=== PATIENT | female | born 1930 | race African-American/Black ===

== ENCOUNTER 2017-05-15 14:39 | Emergency (ER) | payer MEDICARE ==
[2017-05-15] MEDS ORDERED: ASPIRIN 325 MG TABLET PO ONE (15:18)
--- NOTE | 2017-05-15 15:19 | ER Document Report ---
ED Medical Screen (RME) - General Chief Complaint: Chest Pain Stated Complaint: CHEST PAIN Time Seen by Provider: 05/15/17 15:15 Notes: The patient is a 87-year-old female, past medical history current smoker, hypertension, presents with a chest tightness that started after she was smoking cigarettes earlier today. She just moved from [facility] has not established a primary care physician yet in [place]. PE: NAD. Lungs CTAB. Non-tender chest wall. I have greeted and performed a rapid initial assessment of this patient. A comprehensive ED assessment and evaluation of the patient, analysis of test results and completion of the medical decision making process will be conducted by additional ED providers. - Related Data Allergies/Adverse Reactions: No Known Allergies Allergy (Unverified 05/15/17 14:42) Home Medications: Current Home Medications Albuterol Sulfate [Ventolin Hfa] 1 applic IH BID 05/15/17 [History] Aspirin 1 tab PO DAILY 05/15/17 [History] Atenolol/Chlorthalidone [Atenolol-Chlorthalidone 50-25mg Tablet] 1 tab PO DAILY 05/15/17 [History] Budesonide/Formoterol Fumarate [Symbicort HFA 160-4.5 mcg Inhaler 6 gm] 1 applic IH TID 05/15/17 [History] Bupropion HCl [Bupropion Xl] 1 tab PO DAILY 05/15/17 [History] Past Medical History - Social History Chew tobacco use (# tins/day): No Frequency of alcohol use: None Drug Abuse: None Renal/ Medical History: Denies: Hx Peritoneal Dialysis Physical Exam - Vital signs Vitals: Temp Pulse Resp BP Pulse Ox 97.9 F 73 18 128/57 H 97 05/15/17 14:56 05/15/17 14:56 05/15/17 14:56 05/15/17 14:56 05/15/17 14:56 Course - Vital Signs Vital signs: Temp Pulse Resp BP Pulse Ox 97.9 F 73 18 128/57 H 97 05/15/17 14:56 05/15/17 14:56 05/15/17 14:56 05/15/17 14:56 05/15/17 14:56
--- NOTE | 2017-05-15 16:10 | ER Document Report ---
ED General - General Chief Complaint: Chest Pain Stated Complaint: CHEST PAIN Time Seen by Provider: 05/15/17 15:15 Mode of Arrival: Ambulatory Information source: Patient Notes: This is an 87-year-old female with a history of hypertension and COPD who recently relocated from [place] who presents to the emergency room with some chest soreness which is is exacerbated by reaching. Patient states she felt the soreness while she was smoking a cigarette. She smokes 1 cigarette a day. She denies any chest pain at this time, shortness of breath, nausea or vomiting. Right now, she feels good - HPI Onset: Just prior to arrival Onset/Duration: Gradual Quality of pain: Dull Severity: Moderate Pain Level: 2 Associated symptoms: Other - Chest wall pain worse with movement of the arms. denies: Fever, Shortness of breath Exacerbated by: Movement Relieved by: Remaining still Similar symptoms previously: No Recently seen / treated by doctor: No - Related Data Allergies/Adverse Reactions: No Known Allergies Allergy (Unverified 05/15/17 14:42) Home Medications: Current Home Medications Albuterol Sulfate [Ventolin Hfa] 1 applic IH BID 05/15/17 [History] Aspirin 1 tab PO DAILY 05/15/17 [History] Atenolol/Chlorthalidone [Atenolol-Chlorthalidone 50-25mg Tablet] 1 tab PO DAILY 05/15/17 [History] Budesonide/Formoterol Fumarate [Symbicort HFA 160-4.5 mcg Inhaler 6 gm] 1 applic IH TID 05/15/17 [History] Bupropion HCl [Bupropion Xl] 1 tab PO DAILY 05/15/17 [History] Past Medical History - General Information source: Patient - Social History Smoking Status: Current Every Day Smoker Cigarette use (# per day): Yes - 1 cigarette a day Chew tobacco use (# tins/day): No Frequency of alcohol use: None Drug Abuse: None Lives with: Family Family History: None Patient has suicidal ideation: No Patient has homicidal ideation: No - Past Medical History Cardiac Medical History: Reports: Hx Hypertension Pulmonary Medical History: Reports: Hx COPD EENT Medical History: Reports: None Neurological Medical History: Reports: None Endocrine Medical History: Reports: None Renal/ Medical History: Reports: None. Denies: Hx Peritoneal Dialysis Malignancy Medical History: Reports: None GI Medical History: Reports: None Musculoskeltal Medical History: Reports None Skin Medical History: Reports None Psychiatric Medical History: Reports: None Traumatic Medical History: Reports: None Infectious Medical History: Reports: None Surgical Hx: Negative Review of Systems - Review of Systems Constitutional: denies: Chills, Fever EENT: No symptoms reported Cardiovascular: No symptoms reported Respiratory: No symptoms reported Gastrointestinal: No symptoms reported Genitourinary: No symptoms reported Female Genitourinary: No symptoms reported Musculoskeletal: See HPI Skin: No symptoms reported Hematologic/Lymphatic: No symptoms reported Neurological/Psychological: No symptoms reported Physical Exam - Vital signs Vitals: Temp Pulse Resp BP Pulse Ox 97.9 F 73 18 128/57 H 97 05/15/17 14:56 05/15/17 14:56 05/15/17 14:56 05/15/17 14:56 05/15/17 14:56 Notes: Physical exam: GENERAL: 87-year-old female, alert and oriented 3, no acute distress HEAD: Atraumatic, normocephalic. EYES: Pupils equal round and reactive to light, extraocular movements intact, sclera anicteric, conjunctiva are normal. ENT: Nares patent, oropharynx clear without exudates. Moist mucous membranes. NECK: Normal range of motion, supple without obvious mass or JVD. LUNGS: Breath sounds clear to auscultation bilaterally and equal. No wheezes rales or rhonchi. HEART: Regular rate and rhythm without murmurs, rubs or gallops. ABDOMEN: Soft, normoactive bowel sounds. No tenderness to palpation. No guarding, no rebound. No masses appreciated. EXTREMITIES: Normal range of motion, no pitting or edema. No clubbing or cyanosis. NEUROLOGICAL: Cranial nerves II through XII grossly intact. Normal speech, moving all extremities. PSYCH: Normal mood, normal affect. SKIN: Warm, Dry, normal turgor, no rashes or lesions noted. Course - Vital Signs Vital signs: Temp Pulse Resp BP Pulse Ox 97.9 F 73 20 132/58 H 97 05/15/17 14:56 05/15/17 14:56 05/15/17 20:52 05/15/17 20:52 05/15/17 20:52 - Laboratory Result Diagrams: 05/15/17 15:42 05/15/17 15:42 Laboratory results interpreted by me: 05/15/17 05/15/17 15:42 15:42 Hct 34.9 L RDW 14.2 H Monocytes % 13.4 H Potassium 3.4 L AST 40 H Creatine Kinase 572 H - Diagnostic Test Radiology reviewed: Image reviewed, Reports reviewed - CXR shows no acute infiltrates - EKG Interpretation by Me Rate: Normal Rhythm: NSR - EKG shows normal sinus rhythm with a ventricular rate of 77, right bundle branch block, left anterior hemiblock, nonspecific ST changes. There is no old EKG to compare. Discharge - Discharge Clinical Impression: Chest wall pain Condition: Stable Disposition: HOME, SELF-CARE Instructions: Chest Wall Pain ([facility]) Additional Instructions: Thank you for choosing [facility] for your care. The examination and treatment you have received in the Emergency Department today has been rendered on an emergency basis only and is not intended to be a substitute for complete medical care. You should contact your follow-up physician as it is important that he or she examine you for any new or remaining problems. If given a copy of any lab tests or radiology reports, please bring them with you when you see your physician. If your problem worsens or new symptoms appear and you are unable to arrange prompt follow-up care, return to the Emergency Department. Specific signs to look out for: Worsening pain, shortness of breath or any concerns or getting worse. Any other instructions: Continue current medicines. Primary Care Doctor's affiliated with [facility]: If you do not have a primary care doctor or you are unable to get an apointment during that time, you can try one of the doctor's below. These are internal medicine doctor's that have admitting priveledges to the hospital ( they will see you both in the office as well as in this hospital if you are ever hospitalized here). Dr. Jo Nowak [address], [place] [address] [phone] Dr Hernandez Address: [address] [place] [address] Dr Shepard Address: [address] [place] [address] [place] [address]
[2017-05-15 16:12] LABS: ABSOLUTE EOSINOPHILS # (AUTO) 0.1 10^3/uL (0.0-0.6); ABSOLUTE LYMPHOCYTES (AUTO) 1.5 10^3/uL (0.5-4.7); ABSOLUTE MONOCYTES (AUTO) 0.8 10^3/uL (0.1-1.4); ABSOLUTE NEUT (AUTO) 3.4 10^3/uL (1.7-8.2); BASOPHILS % (AUTO) 0.2 % (0-2); EOSINOPHILS % (AUTO) 1.8 % (0-6); HEMATOCRIT 34.9 % (36.0-47.0); HEMOGLOBIN 12.1 g/dL (12.0-15.5); HGB HCT DIFFERENCE 1.4; LYMPHOCYTES % (AUTO) 25.6 % (13-45); MEAN CORPUSCULAR HEMOGLOBIN 31.1 pg (27.0-33.4); MEAN CORPUSCULAR HGB CONC 34.7 g/dL (32.0-36.0); MEAN CORPUSCULAR VOLUME 90 fl (80-97); MONOCYTES % (AUTO) 13.4 % (3-13); RED CELL DISTRIBUTION WIDTH 14.2 % (11.5-14.0); WHITE BLOOD COUNT 5.7 10^3/uL (4.0-10.5)
[2017-05-15 16:14] LABS: ALANINE AMINOTRANSFERASE 30 U/L (9-52); ALBUMIN 3.8 g/dL (3.5-5.0); ALKALINE PHOSPHATASE 77 U/L (38-126); ANION GAP 13 (5-19); ASPARTATE AMINO TRANSFERASE 40 U/L (14-36); BILIRUBIN,DIRECT 0.3 mg/dL (0.0-0.4); BILIRUBIN,TOTAL 0.7 mg/dL (0.2-1.3); BLOOD UREA NITROGEN 15 mg/dL (7-20); CALCIUM 9.4 mg/dL (8.4-10.2); CARBON DIOXIDE 26 mmol/L (22-30); CHLORIDE 103 mmol/L (98-107); CREATINE KINASE 572 U/L (30-135); CREATININE RESULT 0.77 mg/dL (0.52-1.25); GLUCOSE 92 mg/dL (75-110); LIPASE 140.7 U/L (23-300); POTASSIUM 3.4 mmol/L (3.6-5.0); SODIUM 141.8 mmol/L (137-145); TOTAL PROTEIN 7.5 g/dL (6.3-8.2)
--- NOTE | 2017-05-15 16:15 | RADIOLOGY REPORT (SQ) ---
EXAM DESCRIPTION: CHEST SINGLE VIEW COMPLETED DATE/TIME: 05/15/2017 3:57 pm REASON FOR STUDY: chest pain COMPARISON: None. EXAM PARAMETERS: NUMBER OF VIEWS: One view. TECHNIQUE: Single frontal radiographic view of the chest acquired. RADIATION DOSE: NA LIMITATIONS: None. FINDINGS: LUNGS AND PLEURA: No opacities, masses or pneumothorax. No pleural effusion. MEDIASTINUM AND HILAR STRUCTURES: No masses. Contour normal. HEART AND VASCULAR STRUCTURES: Heart normal in size. Normal vasculature. BONES: No acute findings. HARDWARE: None in the chest. OTHER: No other significant finding. IMPRESSION: NO ACUTE RADIOGRAPHIC FINDING IN THE CHEST. TECHNICAL DOCUMENTATION: JOB ID: [id number] [employer]- All Rights Reserved
[2017-05-15 16:26] LABS: TROPONIN I 0.016 ng/mL
--- NOTE | 2017-05-15 20:50 | EKG REPORT ---
SEVERITY:- ABNORMAL ECG - SINUS RHYTHM RIGHT BUNDLE BRANCH BLOCK LVH WITH IVCD AND SECONDARY REPOL ABNRM : Confirmed by: Yulisa Lauren 15-May-2017 20:48:34
[2017-05-15 20:54] VITALS: BP 132/58
== END 2017-05-15 20:54 | disposition home or self-care (01) ==
LOC: ER 14:39
DX: R07.89 Other chest pain (principal); I10 Essential (primary) hypertension; J44.9 Chronic obstructive pulmonary disease, unspecified; F17.210 Nicotine dependence, cigarettes, uncomplicated; Z79.899 Other long term (current) drug therapy
CPT/HCPCS: 93005; 99285; 36415; 82550; 83690; 85025; 80053; 84484; 83880; 71010; 93010; A9270

== ENCOUNTER 2017-10-24 13:38 | Emergency (ER) | payer MEDICARE, MEDICAID ==
[2017-10-24] MEDS ORDERED: ACETAMINOPHEN 325 MG TABLET PO ONE (15:38)
[2017-10-24] MEDS ORDERED: TRAMADOL HCL 50 MG TABLET PO ONE (15:38)
[2017-10-24 16:21] LABS: ABSOLUTE BASOPHILS # (AUTO) 0.1 10^3/uL (0.0-0.2); ABSOLUTE LYMPHOCYTES (AUTO) 1.3 10^3/uL (0.5-4.7); ABSOLUTE MONOCYTES (AUTO) 0.8 10^3/uL (0.1-1.4); ABSOLUTE NEUT (AUTO) 4.8 10^3/uL (1.7-8.2); BASOPHILS % (AUTO) 1.9 % (0-2); EOSINOPHILS % (AUTO) 0.5 % (0-6); HEMATOCRIT 40.3 % (36.0-47.0); HEMOGLOBIN 13.6 g/dL (12.0-15.5); LYMPHOCYTES % (AUTO) 18.4 % (13-45); MEAN CORPUSCULAR HEMOGLOBIN 30.2 pg (27.0-33.4); MEAN CORPUSCULAR HGB CONC 33.9 g/dL (32.0-36.0); MEAN CORPUSCULAR VOLUME 89 fl (80-97); MONOCYTES % (AUTO) 10.8 % (3-13); PLATELET COUNT 265 10^3/uL (150-450); RED BLOOD COUNT 4.51 10^6/uL (3.72-5.28); RED CELL DISTRIBUTION WIDTH 13.8 % (11.5-14.0); SEGMENTED NEUTROPHILS % (AUTO) 68.4 % (42-78); TOTAL CELLS COUNTED % (AUTO) 100 %
[2017-10-24 16:40] LABS: ANION GAP 12 (5-19); BLOOD UREA NITROGEN 15 mg/dL (7-20); CALCIUM 9.8 mg/dL (8.4-10.2); CARBON DIOXIDE 30 mmol/L (22-30); CHLORIDE 103 mmol/L (98-107); GLUCOSE 100 mg/dL (75-110); POTASSIUM 4.1 mmol/L (3.6-5.0); SODIUM 145.2 mmol/L (137-145); URIC ACID 8.3 mg/dL (2.5-7.5)
--- NOTE | 2017-10-24 16:48 | RADIOLOGY REPORT (SQ) ---
EXAM DESCRIPTION: HAND LEFT 3 VIEWS COMPLETED DATE/TIME: 10/24/2017 4:38 pm REASON FOR STUDY: left hand pain, swelling, atraumatic COMPARISON: None. EXAM PARAMETERS: NUMBER OF VIEWS: Three views. TECHNIQUE: AP, lateral and oblique radiographic images acquired of the left hand. LIMITATIONS: None. FINDINGS: MINERALIZATION: Normal. BONES: No acute fracture or dislocation. No worrisome bone lesions. JOINTS: No effusions. 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 SOFT TISSUES: No soft tissue swelling. No foreign body. OTHER: No other significant finding. IMPRESSION: NEGATIVE STUDY OF THE LEFT HAND. NO RADIOGRAPHIC EVIDENCE OF ACUTE INJURY. TECHNICAL DOCUMENTATION: JOB ID: [id number] [employer]- All Rights Reserved Reading location - IP/workstation name: [email or web address]
--- NOTE | 2017-10-24 16:49 | RADIOLOGY REPORT (SQ) ---
EXAM DESCRIPTION: WRIST LEFT 3 VIEWS COMPLETED DATE/TIME: 10/24/2017 4:38 pm REASON FOR STUDY: left wrist pain, atraumatic COMPARISON: Left hand same date NUMBER OF VIEWS: Three views. TECHNIQUE: AP, lateral, and oblique radiographic images acquired of the left wrist. LIMITATIONS: None. FINDINGS: MINERALIZATION: Normal. BONES: No acute fracture or dislocation. No worrisome bone lesions. Normal alignment. SOFT TISSUES: No soft tissue swelling. No foreign body. OTHER: No other significant finding. IMPRESSION: NEGATIVE STUDY OF THE LEFT WRIST. NO RADIOGRAPHIC EVIDENCE OF ACUTE INJURY. TECHNICAL DOCUMENTATION: JOB ID: [id number] [employer]- All Rights Reserved Reading location - IP/workstation name: [email or web address]
--- NOTE | 2017-10-24 16:55 | ER Document Report ---
ED General - General Chief Complaint: Insect Bite Stated Complaint: LEFT HAND PAIN, SWELLING Time Seen by Provider: 10/24/17 15:27 Mode of Arrival: Ambulatory Information source: Patient, Relative - [facility] Notes: Patient is a pleasant 87-year-old black female presents to the emergency department with report of pain in the left wrist and hand that she has had for the last 4 days of unexplained etiology. The patient states pain is worse with any movement to the wrist or hand. She denies any obvious insect bites, but she is concerned that she may have been bitten. The patient denies any history of gout. She reports no chest pain or difficulty breathing or fever or chills. The patient reports no numbness or paresthesia. She denies any injury she is aware of. - Related Data Allergies/Adverse Reactions: No Known Allergies Allergy (Verified 10/24/17 13:50) Past Medical History - General Information source: Patient, Relative - Social History Smoking Status: Former Smoker Chew tobacco use (# tins/day): No Frequency of alcohol use: None Drug Abuse: None Lives with: Family Family History: None Patient has suicidal ideation: No Patient has homicidal ideation: No - Past Medical History Cardiac Medical History: Reports: Hx Hypertension Pulmonary Medical History: Reports: Hx COPD Renal/ Medical History: Denies: Hx Peritoneal Dialysis Past Surgical History: Reports: Hx Section - 5 Review of Systems - Review of Systems Notes: REVIEW OF SYSTEMS: CONSTITUTIONAL : Denies fever, chills, or sweats. Denies recent illness. EENT: Denies eye, ear, throat, or mouth pain or symptoms. Denies nasal or sinus congestion or discharge. Denies throat, tongue, or mouth swelling or difficulty swallowing. CARDIOVASCULAR: Denies chest pain. Denies palpitations or racing or irregular heart beat. Denies ankle edema. RESPIRATORY: Denies cough, cold, or chest congestion. Denies shortness of breath, difficulty breathing, or wheezing. GASTROINTESTINAL: Denies abdominal pain or distention. Denies nausea, vomiting , or diarrhea. Denies blood in vomitus, stools, or per rectum. Denies black, tarry stools. Denies constipation. GENITOURINARY: Denies difficulty urinating, painful urination, burning, frequency, blood in urine, or discharge. FEMALE GENITOURINARY: Denies vaginal bleeding, heavy or abnormal periods, irregular periods. Denies vaginal discharge or odor. MUSCULOSKELETAL: Denies back or neck pain or stiffness. SKIN: Denies rash, lesions or sores. HEMATOLOGIC : Denies easy bruising or bleeding. LYMPHATIC: Denies swollen, enlarged glands. NEUROLOGICAL: Denies confusion or altered mental status. Denies passing out or loss of consciousness. Denies dizziness or lightheadedness. Denies headache. Denies weakness or paralysis or loss of use of either side. Denies problems with gait or speech. Denies sensory loss, numbness, or tingling. Denies seizures. PSYCHIATRIC: Denies anxiety or stress. Denies depression, suicidal ideation, or homicidal ideation. ALL OTHER SYSTEMS REVIEWED AND NEGATIVE. Dictation was performed using [employer] voice recognition software Physical Exam - Vital signs Vitals: Temp Pulse Resp BP Pulse Ox 98.7 F 79 16 134/88 H 96 10/24/17 14:07 10/24/17 14:07 10/24/17 14:07 10/24/17 14:07 10/24/17 14:07 - Notes Notes: PHYSICAL EXAMINATION: GENERAL: Well-appearing, well-nourished and in no acute distress. HEAD: Atraumatic, normocephalic. EYES: Pupils equal round and reactive to light, extraocular movements intact, conjunctiva are normal. ENT: Nares patent, oropharynx clear without exudates. Moist mucous membranes. NECK: Normal range of motion, supple without lymphadenopathy LUNGS: Breath sounds clear to auscultation bilaterally and equal. No wheezes rales or rhonchi. HEART: Regular rate and rhythm without murmurs ABDOMEN: Soft, nontender, nondistended abdomen. No guarding, no rebound. No masses appreciated. Female : deferred Musculoskeletal: no pitting or edema. No cyanosis. Patient has pain on palpation to the left distal wrist and through the hand close to the first and second metacarpophalangeal joints. There is mild erythema noted to the region with warmth. No obvious evidence for abscess. No proximal erythema or adenopathy. Distally, the patient has good capillary refill and appropriate pulses. NEUROLOGICAL: Cranial nerves grossly intact. Normal speech, normal gait. Normal sensory, motor exams PSYCH: Normal mood, normal affect. SKIN: Warm, Dry, normal turgor, no rashes or lesions noted. Course - Re-evaluation Re-evalutation: 10/24/17 17:59 X-rays are negative and the patient had normal lab work with the exception of a slightly elevated uric acid level. The patient did have improvement after tramadol. Findings fit more so with gout, but I cannot exclude a very mild early cellulitis, so patient will be covered with medication for gout with colchicine and will be given 1 dose of prednisone now. The patient will also be placed upon Keflex in case her is a overlying cellulitis that she is concerned about. Will also write for Ultram which seemed to help the pain. No evidence for septic arthritis or electrolyte imbalance or neurovascular compromise. 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 You may take the colchicine up to twice per day as needed for significant gout pain. Colchicine can give you mild diarrhea and upset stomach as a side effect. You may take tylenol as needed for pain. Return to the emergency department in case of fever or severe swelling. Prescriptions: Tramadol HCl [Ultram 50 mg Tablet] 50 mg PO Q4HP PRN #20 tab PRN Reason: Colchicine [Colchicine 0.6 mg Tablet] 0.6 mg PO Q12HP PRN #14 tablet PRN Reason: Cephalexin Monohydrate [Keflex 500 mg Capsule] 500 mg PO TID 8 Days capsule
[2017-10-24] MEDS ORDERED: CEPHALEXIN 500 MG CAPSULE PO ONE (17:52)
[2017-10-24] MEDS ORDERED: COLCHICINE 0.6 MG TABLET PO ONE (17:52)
[2017-10-24] MEDS ORDERED: PREDNISONE 20 MG TABLET PO ONE (17:55)
[2017-10-24 18:21] VITALS: BP 136/68
== END 2017-10-24 18:21 | disposition home or self-care (01) ==
LOC: ER 13:38
DX: M10.032 Idiopathic gout, left wrist (principal); M25.532 Pain in left wrist; I10 Essential (primary) hypertension; J44.9 Chronic obstructive pulmonary disease, unspecified; Z87.891 Personal history of nicotine dependence
CPT/HCPCS: 99283; 36415; 84550; 85025; 80048; 73130; 73110; A9270 ×5; J7512

== ENCOUNTER 2017-12-21 14:22 | Emergency (ER) | payer MEDICARE, MEDICAID ==
[2017-12-21] MEDS ORDERED: ASPIRIN 81 MG TABLET, CHEWABLE PO ONE (15:10)
--- NOTE | 2017-12-21 15:12 | ER Document Report ---
ED Medical Screen (RME) - General Chief Complaint: Chest Pain Stated Complaint: CHEST DISCOMFORT Time Seen by Provider: 12/21/17 15:09 Mode of Arrival: Ambulatory Information source: Patient, Relative, [facility] Records Notes: 87-year-old female with hypertension, COPD presents with complaint of chest pain that started 3 days prior to arrival. Pain is located on the left side of her chest described as a pressure-like pain that is intermittent. Patient has not had any associated diaphoresis, nausea, lightheadedness. She denies any recent illnesses. She is a former smoker and quit 2 weeks ago. I have greeted and performed a rapid initial assessment of this patient. A comprehensive ED assessment and evaluation of the patient including analysis of labs and imaging ( if obtained) and completion of medical decision making will be conducted by an additional ED provider. PHYSICAL EXAMINATION: GENERAL: Well-appearing, well-nourished and in no acute distress. HEAD: Atraumatic, normocephalic. EYES: Pupils equal round extraocular movements intact, conjunctiva are normal. ENT: Nares patent NECK: Normal range of motion LUNGS: No respiratory distress Musculoskeletal: Normal range of motion NEUROLOGICAL: Normal speech, normal gait. PSYCH: Normal mood, normal affect. SKIN: Warm, Dry, normal turgor, no rashes or lesions noted. - Related Data Allergies/Adverse Reactions: No Known Allergies Allergy (Verified 12/21/17 15:06) Past Medical History - Social History Chew tobacco use (# tins/day): No Drug Abuse: None - Past Medical History Cardiac Medical History: Reports: Hx Hypertension Pulmonary Medical History: Reports: Hx COPD Renal/ Medical History: Denies: Hx Peritoneal Dialysis Past Surgical History: Reports: Hx Section - 5 Physical Exam - Vital signs Vitals: Temp Pulse Resp BP Pulse Ox 97.7 F 50 L 20 142/74 H 97 12/21/17 14:44 12/21/17 14:44 12/21/17 14:44 12/21/17 14:44 12/21/17 14:44 Course - Vital Signs Vital signs: Temp Pulse Resp BP Pulse Ox 97.7 F 50 L 20 142/74 H 97 12/21/17 14:44 12/21/17 14:44 12/21/17 14:44 12/21/17 14:44 12/21/17 14:44
--- NOTE | 2017-12-21 15:58 | RADIOLOGY REPORT (SQ) ---
EXAM DESCRIPTION: CHEST SINGLE VIEW COMPLETED DATE/TIME: 12/21/2017 3:50 pm REASON FOR STUDY: chest pain COMPARISON: 05/15/2017 EXAM PARAMETERS: NUMBER OF VIEWS: One view. TECHNIQUE: Single frontal radiographic view of the chest acquired. RADIATION DOSE: NA LIMITATIONS: None. FINDINGS: LUNGS AND PLEURA: No acute opacities, masses or pneumothorax. No pleural effusion. MEDIASTINUM AND HILAR STRUCTURES: Stable. HEART AND VASCULAR STRUCTURES: Heart normal in size. Normal vasculature. BONES: No acute findings. HARDWARE: None in the chest. OTHER: No other significant finding. IMPRESSION: NO ACUTE RADIOGRAPHIC FINDING IN THE CHEST. TECHNICAL DOCUMENTATION: JOB ID: [id number] [employer]- All Rights Reserved Reading location - IP/workstation name: [email or web address]
[2017-12-21 17:11] LABS: APPEARANCE,URINE CLEAR; BILIRUBIN,URINE NEGATIVE (NEGATIVE); COLOR,URINE YELLOW; GLUCOSE, URINE NEGATIVE (NEGATIVE); KETONES,URINE NEGATIVE (NEGATIVE); LEUKOCYTE ESTERASE,URINE NEGATIVE (NEGATIVE); NITRITE,URINE NEGATIVE (NEGATIVE); PROTEIN,URINE NEGATIVE (NEGATIVE); URINE SPECIFIC GRAVITY 1.013
--- NOTE | 2017-12-21 18:01 | ER Document Report ---
ED General - General Chief Complaint: Chest Pain Stated Complaint: CHEST DISCOMFORT Time Seen by Provider: 12/21/17 15:09 Mode of Arrival: Ambulatory Notes: 87-year-old female presents emergency department with complaints of chest pain she states that it started 3 days prior to arrival. Has been intermittent in nature. She is describes the pain as a pressure/aching sensation in the left chest. She denies any radiation of the pain. She denies any alleviating or exacerbating factors. Patient has not had any associated nausea, vomiting, diaphoresis. Patient states that she does have a history of hypertension and smoking. She denies a history of hyperlipidemia, diabetes, coronary artery disease, family history of coronary artery disease. - HPI Onset: Other - 3 day Onset/Duration: Gradual Quality of pain: Achy, Pressure Severity: Mild Associated symptoms: None Exacerbated by: Denies Relieved by: Denies Similar symptoms previously: Yes Recently seen / treated by doctor: No - Related Data Allergies/Adverse Reactions: No Known Allergies Allergy (Verified 12/21/17 15:06) Past Medical History - General Information source: Patient, Relative, [facility] Records - Social History Smoking Status: Current Every Day Smoker Chew tobacco use (# tins/day): No Drug Abuse: None Family History: None Patient has suicidal ideation: No Patient has homicidal ideation: No - Past Medical History Cardiac Medical History: Reports: Hx Hypertension Pulmonary Medical History: Reports: Hx COPD Renal/ Medical History: Denies: Hx Peritoneal Dialysis Past Surgical History: Reports: Hx Section - 5 Review of Systems - Review of Systems Constitutional: No symptoms reported EENT: No symptoms reported Cardiovascular: No symptoms reported Respiratory: No symptoms reported Gastrointestinal: No symptoms reported Genitourinary: No symptoms reported Female Genitourinary: No symptoms reported Musculoskeletal: No symptoms reported Skin: No symptoms reported Hematologic/Lymphatic: No symptoms reported Neurological/Psychological: No symptoms reported -: Yes All other systems reviewed and negative Physical Exam - Vital signs Vitals: Temp Pulse Resp BP Pulse Ox 97.7 F 50 L 20 142/74 H 97 12/21/17 14:44 12/21/17 14:44 12/21/17 14:44 12/21/17 14:44 12/21/17 14:44 Interpretation: Normal, Bradycardic - Notes Notes: PHYSICAL EXAMINATION: GENERAL: Well-appearing, well-nourished and in no acute distress. HEAD: Atraumatic, normocephalic. EYES: Pupils equal round and reactive to light, extraocular movements intact, conjunctiva are normal. ENT: Nares patent, oropharynx clear without exudates. Moist mucous membranes. NECK: Normal range of motion, supple without lymphadenopathy LUNGS: Breath sounds clear to auscultation bilaterally and equal. No wheezes rales or rhonchi. HEART: Regular rate and rhythm without murmurs ABDOMEN: Soft, nontender, nondistended abdomen. No guarding, no rebound. No masses appreciated. Female : deferred Musculoskeletal: Normal range of motion, no pitting or edema. No cyanosis. NEUROLOGICAL: Cranial nerves grossly intact. Normal speech, normal gait. Normal sensory, motor exams PSYCH: Normal mood, normal affect. SKIN: Warm, Dry, normal turgor, no rashes or lesions noted. Course - Re-evaluation Re-evalutation: 12/21/17 21:30 On re-evaluation, patient has no complaints. EKG is similar to previous EKG. 1st troponin is negative. Patient continues to deny chest pain. Family now at bedside. Say that they just traveled to this area from [place] 2 months ago. High suspicion for PE. CTA chest ordered. Discussed plan of care with family. They are agreeable for CT. 2nd troponin is WNL and trending down. 12/21/17 22:31 CTA does not show PE. There is a RML interstitial opacity appreciated. Patient has not had cough or fever. WBC is normal. I will start patient on antibiotics prophylactically. Patient instructed to follow up with PCP this week, to take medication as directed, and to return for worsening symptoms. - Vital Signs Vital signs: Temp Pulse Resp BP Pulse Ox 97.7 F 50 L 19 158/84 H 94 12/21/17 14:44 12/21/17 14:44 12/21/17 18:01 12/21/17 18:01 12/21/17 18:01 - Laboratory Result Diagrams: 12/21/17 18:15 12/21/17 18:15 Laboratory results interpreted by me: 12/21/17 12/21/17 12/21/17 16:10 18:15 18:15 RDW 14.3 H Seg Neuts % (Manual) 41 L Eosinophils % (Manual) 9 H Carbon Dioxide 31 H Urine Urobilinogen 4.0 H - EKG Interpretation by Me Additional EKG results interpreted by me: 12/21/17 18:00 EKG: Ventricular rate 52, NE interval 188, QRS duration 174, QTc 480, sinus rhythm, right bundle branch block. T-wave inversion in leads I, 2, 3, aVF, V2, V3, V4, V5, V6. EKG is similar to that done on 05/15/2017. Discharge - Discharge Clinical Impression: Interstitial pneumonia Chest pain Qualifiers: Chest pain type: unspecified Qualified Code(s): R07.9 - Chest pain, unspecified Condition: Stable Instructions: Chest Pain of Unclear Cause ([facility]), Pneumonia ([facility]) Prescriptions: Amox Tr/Potassium Clavulanate [Augmentin 875-125 Tablet] 1 tab PO BID 10 Days # 10 tablet Azithromycin 250 mg PO DAILY #6 tablet Referrals: JESSICA HARTMAN MD [ACTIVE STAFF] - Follow up as needed PATRICIA TOWNSEND DO [NO LOCAL MD] - Follow up as needed
[2017-12-21 18:35] LABS: HEMATOCRIT 36.9 % (36.0-47.0); HEMOGLOBIN 12.5 g/dL (12.0-15.5); MEAN CORPUSCULAR HEMOGLOBIN 30.7 pg (27.0-33.4); MEAN CORPUSCULAR VOLUME 90 fl (80-97); PLATELET COUNT 262 10^3/uL (150-450); RED BLOOD COUNT 4.08 10^6/uL (3.72-5.28); RED CELL DISTRIBUTION WIDTH 14.3 % (11.5-14.0); WHITE BLOOD COUNT 4.8 10^3/uL (4.0-10.5)
[2017-12-21 18:45] LABS: ALANINE AMINOTRANSFERASE 28 U/L (9-52); ALBUMIN 3.8 g/dL (3.5-5.0); ALKALINE PHOSPHATASE 72 U/L (38-126); ANION GAP 10 (5-19); ASPARTATE AMINO TRANSFERASE 32 U/L (14-36); BILIRUBIN,DIRECT 0.3 mg/dL (0.0-0.4); BILIRUBIN,TOTAL 0.5 mg/dL (0.2-1.3); BLOOD UREA NITROGEN 19 mg/dL (7-20); CALCIUM 9.7 mg/dL (8.4-10.2); CARBON DIOXIDE 31 mmol/L (22-30); CHLORIDE 104 mmol/L (98-107); CREATINE KINASE 71 U/L (30-135); GLUCOSE 84 mg/dL (75-110); POTASSIUM 3.8 mmol/L (3.6-5.0); TOTAL PROTEIN 7.9 g/dL (6.3-8.2)
[2017-12-21 18:54] LABS: ABSOLUTE LYMPHOCYTES# (MANUAL) 1.8 10^3/uL (0.5-4.7); ABSOLUTE MONOCYTES # (MANUAL) 0.6 10^3/uL (0.1-1.4); BASOPHILS % (MANUAL) 0 % (0-2); EOSINOPHILS % (MANUAL) 9 % (0-6); LYMPHOCYTES % (MANUAL) 37 % (13-45); MONOCYTES % (MANUAL) 13 % (3-13); SEGMENTED NEUTROPHILS % (MAN) 41 % (42-78); TOTAL CELLS COUNTED 100
[2017-12-21 18:55] LABS: ANISOCYTOSIS SLIGHT; OVALOCYTES SLIGHT; PLATELET COMMENT ADEQUATE; POIKILOCYTOSIS SLIGHT
[2017-12-21 18:57] LABS: CREATINE KINASE MB 1.31 ng/mL (<4.55); TROPONIN I 0.013 ng/mL
[2017-12-21] MEDS ORDERED: NORMAL SALINE 500 ML IV ONE (21:40)
--- NOTE | 2017-12-21 21:50 | RADIOLOGY REPORT (SQ) ---
EXAM DESCRIPTION: CTA CHEST COMPLETED DATE/TIME: 12/21/2017 9:35 pm REASON FOR STUDY: chest pain COMPARISON: None. TECHNIQUE: CT scan of the chest performed using helical scanning technique with dynamic intravenous contrast injection. Images reviewed with lung, soft tissue and bone windows. Reconstructed coronal and sagittal MPR images reviewed. Additional 3 dimensional post-processing performed to develop Maximal Intensity Projection images ([place] P). All images stored on PACS. All CT scanners at this facility use dose modulation, iterative reconstruction, and/or weight based d osing when appropriate to reduce radiation dose to as low as reasonably achievable (ALARA). [facility]: Dose Right [facility]: CareDose [facility]: Dose Right [facility]: Teradose 4D [facility]: [employer] CONTRAST TYPE AND DOSE: contrast/concentration: Isovue 370.00 mg/ml; Total Contrast Delivered: 100.0 ml; Total Saline Delivered: 55.0 ml Contrast bolus optimized for the pulmonary arteries. Not diagnostic for the aorta. RENAL FUNCTION: GFR > 60. RADIATION DOSE: CT Rad equipment meets quality standard of care and radiation dose reduction techniq ues were employed. CTDIvol: 37.0 mGy. DLP: 1157 mGy-cm. . LIMITATIONS: Mild breathing motion FINDINGS: LUNGS AND PLEURA: No consolidation. Scattered small nodular and interstitial opacities wi th subsegmental atelectasis in the lingula and right middle lobe. No pleural effusion. No pneumotho rax. AORTA AND GREAT VESSELS: No aneurysm. Contrast bolus not optimized for the aorta. HEART: No pericardial effusion. Moderate coronary artery calcifications. PULMONARY ARTERIES: No emboli visualized in the main pulmonary arteries or the segmental branches. HILAR AND MEDIASTINAL STRUCTURES: No identified masses or abnormal nodes. HARDWARE: None in the chest. UPPER ABDOMEN: No significant findings. Limited exam. THYROID AND OTHER SOFT TISSUES: No masses. No adenopathy. BONES: No acute finding. 3D MIPS: Confirm above findings. OTHER: No other significant finding. IMPRESSION: No emboli visualized in the main pulmonary arteries or the segmental branches.No consoli dation. Scattered small nodular and interstitial opacities with subsegmental atelectasis in the ling phani and right middle lobe. No pleural effusion. COMMENT: Quality ID # [id number]: Final reports with documentation of one or more dose reduction techniques (e.g., Automated exposure control, adjustment of the mA and/or kV according to patient size, use of iterative reconstruction technique) TECHNICAL DOCUMENTATION: JOB ID: [id number] [place]-72 2010 [employer]- All Rights Reserved Reading location - IP/workstation name: [email or web address]
[2017-12-21 23:45] VITALS: BP 130/63
--- NOTE | 2017-12-22 00:51 | EKG REPORT ---
SEVERITY:- ABNORMAL ECG - SINUS RHYTHM PROBABLE LEFT ATRIAL ABNORMALITY RIGHT BUNDLE BRANCH BLOCK LVH WITH IVCD AND SECONDARY REPOL ABNRM : Confirmed by: Hina Finn MD 22-Dec-2017 00:50:53
== END 2017-12-21 23:45 | disposition home or self-care (01) ==
LOC: ER 14:22
DX: R07.9 Chest pain, unspecified (principal); F17.200 Nicotine dependence, unspecified, uncomplicated; I10 Essential (primary) hypertension; J44.9 Chronic obstructive pulmonary disease, unspecified
CPT/HCPCS: 93005; 99285; 96360; 36415; 82553; 82550; 85025; 80053; 81001; 84484; 83880; 71045; 71275; 93010; A9270; J7040

== ENCOUNTER 2018-01-03 18:52 | Emergency (ER) | payer MEDICARE, MEDICAID ==
--- NOTE | 2018-01-03 20:07 | ER Document Report ---
ED Medical Screen (RME) - General Chief Complaint: Chest Congestion Stated Complaint: CONGESTION Time Seen by Provider: 01/03/18 20:06 Mode of Arrival: Wheelchair Information source: Patient Notes: This is an 87-year-old female with a history of COPD and treated for recent pneumonia who presents to the emergency room because she still feels congested. She denies any fever, chills, nausea vomiting. TRAVEL OUTSIDE OF THE [place] IN LAST 30 DAYS: No - Related Data Allergies/Adverse Reactions: No Known Allergies Allergy (Verified 01/03/18 18:53) Past Medical History - Social History Frequency of alcohol use: None - Past Medical History Cardiac Medical History: Reports: Hx Hypertension Pulmonary Medical History: Reports: Hx COPD Renal/ Medical History: Denies: Hx Peritoneal Dialysis Past Surgical History: Reports: Hx Section - 5 Physical Exam - Vital signs Vitals: Temp Pulse Resp BP Pulse Ox 97.5 F 60 16 187/63 H 96 01/03/18 19:04 01/03/18 19:04 01/03/18 19:04 01/03/18 19:04 01/03/18 19:04 Course - Vital Signs Vital signs: Temp Pulse Resp BP Pulse Ox 97.5 F 60 16 187/63 H 96 01/03/18 19:04 01/03/18 19:04 01/03/18 19:04 01/03/18 19:04 01/03/18 19:04
--- NOTE | 2018-01-03 21:11 | RADIOLOGY REPORT (SQ) ---
EXAM DESCRIPTION: CHEST 2 VIEWS COMPLETED DATE/TIME: 01/03/2018 8:55 pm REASON FOR STUDY: sob COMPARISON: 12/21/2017 and 05/15/2017 EXAM PARAMETERS: NUMBER OF VIEWS: two views TECHNIQUE: Digital Frontal and Lateral radiographic views of the chest acquired. RADIATION DOSE: NA LIMITATIONS: none FINDINGS: LUNGS AND PLEURA: No acute opacities, masses or pneumothorax. No pleural effusion. MEDIASTINUM AND HILAR STRUCTURES: Stable. HEART AND VASCULAR STRUCTURES: Stable. BONES: No acute findings. HARDWARE: None in the chest. OTHER: No other significant finding. IMPRESSION: NO ACUTE RADIOGRAPHIC FINDING IN THE CHEST. TECHNICAL DOCUMENTATION: JOB ID: [id number] [place]-72 2010 [employer]- All Rights Reserved Reading location - IP/workstation name: [employer]
[2018-01-03 22:42] LABS: ABSOLUTE BASOPHILS # (AUTO) 0.1 10^3/uL (0.0-0.2); ABSOLUTE EOSINOPHILS # (AUTO) 0.2 10^3/uL (0.0-0.6); ABSOLUTE LYMPHOCYTES (AUTO) 1.8 10^3/uL (0.5-4.7); ABSOLUTE MONOCYTES (AUTO) 0.7 10^3/uL (0.1-1.4); ABSOLUTE NEUT (AUTO) 2.2 10^3/uL (1.7-8.2); BASOPHILS % (AUTO) 1.2 % (0-2); EOSINOPHILS % (AUTO) 3.7 % (0-6); HEMATOCRIT 36.4 % (36.0-47.0); HEMOGLOBIN 12.6 g/dL (12.0-15.5); LYMPHOCYTES % (AUTO) 37.3 % (13-45); MEAN CORPUSCULAR HEMOGLOBIN 31.4 pg (27.0-33.4); MEAN CORPUSCULAR HGB CONC 34.6 g/dL (32.0-36.0); MEAN CORPUSCULAR VOLUME 91 fl (80-97); MONOCYTES % (AUTO) 13.8 % (3-13); PLATELET COUNT 270 10^3/uL (150-450); RED BLOOD COUNT 4.01 10^6/uL (3.72-5.28); RED CELL DISTRIBUTION WIDTH 14.4 % (11.5-14.0); TOTAL CELLS COUNTED % (AUTO) 100 %; WHITE BLOOD COUNT 4.9 10^3/uL (4.0-10.5)
--- NOTE | 2018-01-03 22:58 | ER Document Report ---
ED Respiratory Problem <TESHAANNA RogersCARLIN - Last Filed: 01/04/18 01:16> - General Mode of Arrival: Wheelchair TRAVEL OUTSIDE OF THE [place] IN LAST 30 DAYS: No <ANAHARIKAJUAREZ - Last Filed: 01/04/18 01:54> - General Chief Complaint: Chest Congestion Stated Complaint: CONGESTION Time Seen by Provider: 01/03/18 20:06 Notes: This 87-year-old female patient comes emerged from complaining of left-sided anterior chest pain. She says she has difficulty breathing and congestion. She was seen here on 12/21/2017 complaining of chest pain and diagnosed with right sided pneumonia. Chest x-ray was normal at that time, CT scan showed scattered small nodules and interstitial opacities with subsegmental atelectasis in the lingular and right middle lobes. Her CBC was normal with a 4000 white count without shift. She was treated with Augmentin and Zithromax. Family member reports the came here 6 months ago to visit with a relative in the and are not sure if they are going to stay here. Reviewing of the record shows they have actually been here at least 8 months so far based on an ER visit in early May 2017. I asked them about establishing with a local medical doctor if they are going to stay in this area, and they state that they were thinking about it. The patient did report that her blood pressure medication was running low. I again emphasized the need to establish with a local medical doctor to treat her medical problems, that we were not in urgent care facility or primary care provider. (TESHACARLIN) - Related Data Allergies/Adverse Reactions: No Known Allergies Allergy (Verified 01/03/18 18:53) Past Medical History - General Information source: Patient - Social History Smoking Status: Current Every Day Smoker Cigarette use (# per day): Yes Frequency of alcohol use: None Drug Abuse: None Lives with: Family Family History: None Patient has suicidal ideation: No Patient has homicidal ideation: No - Past Medical History Cardiac Medical History: Reports: Hx Hypertension Pulmonary Medical History: Reports: Hx COPD Past Surgical History: Reports: Hx Section - 5 <JUAREZ PEREZ - Last Filed: 01/04/18 01:54> Review of Systems - Review of Systems Constitutional: No symptoms reported EENT: No symptoms reported Cardiovascular: See HPI, Chest pain Respiratory: See HPI. denies: Hurts to breathe Gastrointestinal: No symptoms reported Genitourinary: No symptoms reported Female Genitourinary: No symptoms reported Musculoskeletal: No symptoms reported Skin: No symptoms reported Hematologic/Lymphatic: No symptoms reported Neurological/Psychological: No symptoms reported -: Yes All other systems reviewed and negative <JUAREZ PEREZ - Last Filed: 01/04/18 01:54> Physical Exam - Vital signs Interpretation: Hypertensive - General General appearance: Appears well, Alert In distress: None - HEENT Head: Normocephalic, Atraumatic Eyes: Normal Pupils: PERRL Neck: Normal - Respiratory Respiratory status: No respiratory distress Chest status: Tender Breath sounds: Normal. No: Rales, Rhonchi, Wheezing Chest palpation: Tender - There is tenderness to palpate the left parasternal region and the left anterior chest just below the breast. The breast itself is not tender. There is no tenderness to palpate similar areas on the right side of the chest. This is the same area the patient reports as painful when she takes a deep breath or coughs. - Cardiovascular Rhythm: Regular Heart sounds: Normal auscultation Murmur: No - Abdominal Inspection: Obese Bowel sounds: Normal Tenderness: Nontender - Back Back: Normal, Nontender - Extremities General upper extremity: Normal inspection General lower extremity: Edema - Both lower extremities have chronically thickened and lichenified skin, with chronic pitting edema. There are no breaks in the skin, ulcerations or weeping areas. - Neurological Neuro grossly intact: Yes - Psychological Associated symptoms: Normal affect, Normal mood - Skin Skin Temperature: Warm Skin Moisture: Dry Skin Color: Normal <CARLIN PARKINSON - Last Filed: 01/04/18 01:16> - Vital signs Vitals: Temp Pulse Resp BP Pulse Ox 97.5 F 60 16 187/63 H 96 01/03/18 19:04 01/03/18 19:04 01/03/18 19:04 01/03/18 19:04 01/03/18 19:04 Course - Laboratory Result Diagrams: 01/03/18 22:18 01/03/18 22:18 - Diagnostic Test Radiology reviewed: Image reviewed, Reports reviewed - Chest x-ray does not show any acute abnormalities. - EKG Interpretation by Tn EKG shows normal: Sinus rhythm, [place], Intervals. abnormal: QRS Complexes, ST-T Waves - LVH with secondary repolarization abnormalities Rate: Normal - 52 Rhythm: NSR [place]/QRS: RBBB Voltage: Consistant with LVH When compared to previous EKG there are: No significant change <CARLIN PARKINSON - Last Filed: 01/04/18 01:16> - Laboratory Result Diagrams: 01/03/18 22:18 01/03/18 22:18 <HARIKA PEREZON - Last Filed: 01/04/18 01:54> - Vital Signs Vital signs: Temp Pulse Resp BP Pulse Ox 98.0 F 60 19 177/65 H 100 01/04/18 00:39 01/03/18 19:04 01/04/18 00:39 01/04/18 00:39 01/04/18 00:39 - Laboratory Laboratory results interpreted by me: 01/03/18 22:18 RDW 14.4 H Monocytes % 13.8 H Discharge <CARLIN PARKINSON - Last Filed: 01/04/18 01:16> <JUAREZ PEREZ - Last Filed: 01/04/18 01:54> - Discharge Clinical Impression: Chest wall pain High blood pressure Qualifiers: Hypertension type: essential hypertension Qualified Code(s): I10 - Essential ( primary) hypertension Condition: Stable Disposition: HOME, SELF-CARE Additional Instructions: Chest Wall Pain: Your chest pain has been diagnosed as coming from the chest wall. This is often caused by straining the muscles or joints in the chest during physical activity, direct trauma, coughing, or vigorous vomiting. Persons with arthritis are especially prone to this type of pain, due to inflammation of the cartilage joints near the breast bone. Occasionally, no cause can be found. Rest from strenuous physical activity. This kind of chest pain is usually made worse by movement of the chest. Depending on the symptoms, we may prescribe medicine for pain, muscle relaxation, and antiinflammatory effects. If the pain is new, and seems to be due to muscle strain, cold packs can help. Otherwise, apply gentle warmth to the painful area for 15 minutes every hour or two. You should contact the doctor immediately if things change. Further evaluation is needed if you develop a fever or cough, if the nature of the pain changes, or if you become short of breath. Try taking Tylenol and ibuprofen or Aleve for your chest wall pain. Be sure to take your blood pressure medications and check your blood pressure at least twice daily. Follow-up with a local medical doctor to renew your blood pressure medications before you run out. Follow-up with a local medical doctor to manage your blood pressure and other health problems. RETURN TO THE EMERGENCY ROOM IF ANY NEW OR WORSENING SYMPTOMS. Marbellaibe Attestation: 01/03/18 23:08 I personally performed the services described in the documentation, reviewed and edited the documentation which was dictated to the scribe in my presence, and it accurately records my words and actions. (CARLIN PARKINSON) Scribe Documentation - Scribe Written by Scrmariela:: Nico Rodriguez, 01/04/2018 [id number] acting as scribe for :: Tesha <JUAREZ PEREZ - Last Filed: 01/04/18 01:54>
[2018-01-03] MEDS ORDERED: NAPROXEN 250 MG TABLET PO ONE (23:10)
[2018-01-03] MEDS ORDERED: ACETAMINOPHEN 325 MG TABLET PO ONE (23:10)
[2018-01-04 01:13] VITALS: BP 177/65
--- NOTE | 2018-01-04 03:06 | EKG REPORT ---
SEVERITY:- ABNORMAL ECG - SINUS RHYTHM RIGHT BUNDLE BRANCH BLOCK LVH WITH IVCD AND SECONDARY REPOL ABNRM : Confirmed by: Hina Finn MD 04-Jan-2018 03:05:07
== END 2018-01-04 01:00 | disposition home or self-care (01) ==
LOC: ER 18:52
DX: R07.89 Other chest pain (principal); I10 Essential (primary) hypertension; J44.9 Chronic obstructive pulmonary disease, unspecified; R60.0 Localized edema; I45.10 Unspecified right bundle-branch block; R09.89 Other specified symptoms and signs involving the circulatory and respiratory systems; Z87.01 Personal history of pneumonia (recurrent); Z79.899 Other long term (current) drug therapy; F17.210 Nicotine dependence, cigarettes, uncomplicated
CPT/HCPCS: 93005; 99284; 36415; 85025; 71046; 93010; A9270 ×2

== ENCOUNTER 2018-09-06 14:22 | Emergency (ER) | payer MEDICARE, MEDICAID ==
--- NOTE | 2018-09-06 14:41 | ER Document Report ---
ED Medical Screen (RME) - General Chief Complaint: Abdominal Pain Stated Complaint: ABDOMINAL PAIN Time Seen by Provider: 09/06/18 14:39 Mode of Arrival: Wheelchair Information source: Patient, Relative TRAVEL OUTSIDE OF THE [place] IN LAST 30 DAYS: No - HPI Patient complains to provider of: abd pain Onset: Other - pt with several day h/o abd pain. Worse today - Related Data Allergies/Adverse Reactions: No Known Allergies Allergy (Verified 09/06/18 14:29) Past Medical History - Past Medical History Cardiac Medical History: Reports: Hx Hypertension Pulmonary Medical History: Reports: Hx COPD Renal/ Medical History: Denies: Hx Peritoneal Dialysis Past Surgical History: Reports: Hx Section - 5 Physical Exam - Vital signs Vitals: Temp Pulse Resp BP Pulse Ox 97.9 F 51 L 18 124/86 H 96 09/06/18 14:33 09/06/18 14:33 09/06/18 14:33 09/06/18 14:33 09/06/18 14:33 Course - Vital Signs Vital signs: Temp Pulse Resp BP Pulse Ox 97.9 F 51 L 18 124/86 H 96 09/06/18 14:33 09/06/18 14:33 09/06/18 14:33 09/06/18 14:33 09/06/18 14:33
[2018-09-06 15:25] LABS: ABSOLUTE EOSINOPHILS # (AUTO) 0.2 10^3/uL (0.0-0.6); ABSOLUTE LYMPHOCYTES (AUTO) 1.9 10^3/uL (0.5-4.7); ABSOLUTE MONOCYTES (AUTO) 0.5 10^3/uL (0.1-1.4); ABSOLUTE NEUT (AUTO) 2.2 10^3/uL (1.7-8.2); BASOPHILS % (AUTO) 0.8 % (0-2); EOSINOPHILS % (AUTO) 3.4 % (0-6); HEMATOCRIT 39.7 % (36.0-47.0); HEMOGLOBIN 13.5 g/dL (12.0-15.5); LYMPHOCYTES % (AUTO) 38.6 % (13-45); MEAN CORPUSCULAR HEMOGLOBIN 30.7 pg (27.0-33.4); MEAN CORPUSCULAR HGB CONC 33.9 g/dL (32.0-36.0); MEAN CORPUSCULAR VOLUME 91 fl (80-97); MONOCYTES % (AUTO) 11.2 % (3-13); PLATELET COUNT 264 10^3/uL (150-450); RED BLOOD COUNT 4.39 10^6/uL (3.72-5.28); TOTAL CELLS COUNTED % (AUTO) 100 %; WHITE BLOOD COUNT 4.9 10^3/uL (4.0-10.5)
[2018-09-06 15:26] LABS: APPEARANCE,URINE CLEAR; BILIRUBIN,URINE NEGATIVE (NEGATIVE); COLOR,URINE YELLOW; GLUCOSE, URINE NEGATIVE (NEGATIVE); KETONES,URINE NEGATIVE (NEGATIVE); LEUKOCYTE ESTERASE,URINE NEGATIVE (NEGATIVE); NITRITE,URINE NEGATIVE (NEGATIVE); PROTEIN,URINE NEGATIVE (NEGATIVE); URINE SPECIFIC GRAVITY 1.009
[2018-09-06 15:40] LABS: ALANINE AMINOTRANSFERASE 22 U/L (9-52); ALBUMIN 3.9 g/dL (3.5-5.0); ALKALINE PHOSPHATASE 86 U/L (38-126); ANION GAP 7 (5-19); ASPARTATE AMINO TRANSFERASE 31 U/L (14-36); BILIRUBIN,DIRECT 0.2 mg/dL (0.0-0.4); BILIRUBIN,TOTAL 0.3 mg/dL (0.2-1.3); BLOOD UREA NITROGEN 18 mg/dL (7-20); CALCIUM 10.2 mg/dL (8.4-10.2); CARBON DIOXIDE 32 mmol/L (22-30); CHLORIDE 100 mmol/L (98-107); GLUCOSE 82 mg/dL (75-110); LIPASE 152.9 U/L (23-300); POTASSIUM 4.3 mmol/L (3.6-5.0); SODIUM 139.2 mmol/L (137-145); TOTAL PROTEIN 8.5 g/dL (6.3-8.2)
--- NOTE | 2018-09-06 16:19 | ER Document Report ---
ED General - General Chief Complaint: Abdominal Pain Stated Complaint: ABDOMINAL PAIN Time Seen by Provider: 09/06/18 14:39 Primary Care Provider: ADAM CONNORS MD [ACTIVE STAFF] - Follow up in 3-5 days SUHA HARRISON MD [ACTIVE STAFF] - Follow up in 3-5 days HERBERTH HO MD [ACTIVE STAFF] - Follow up in 3-5 days ANGELINA CASTRO MD [ACTIVE STAFF] - Follow up in 3-5 days Mode of Arrival: Wheelchair TRAVEL OUTSIDE OF THE U.S. IN LAST 30 DAYS: No - HPI Onset/Duration: Intermittent - For the last 5-6 months Quality of pain: Cramping, Dull Severity: Mild Associated symptoms: None Exacerbated by: Denies Relieved by: Denies Similar symptoms previously: Yes Recently seen / treated by doctor: Yes - Was seen in [place] for abdominal pain, told she had a B12 deficiency Notes: 8 - Related Data Allergies/Adverse Reactions: No Known Allergies Allergy (Verified 09/06/18 14:29) Past Medical History - General Information source: Patient, Relative - Social History Smoking Status: Current Every Day Smoker Family History: None Patient has suicidal ideation: No Patient has homicidal ideation: No - Past Medical History Cardiac Medical History: Reports: Hx Hypertension Pulmonary Medical History: Reports: Hx COPD Renal/ Medical History: Denies: Hx Peritoneal Dialysis Past Surgical History: Reports: Hx Section - 5 Review of Systems - Review of Systems Constitutional: No symptoms reported EENT: No symptoms reported Cardiovascular: No symptoms reported Respiratory: No symptoms reported Gastrointestinal: No symptoms reported Genitourinary: No symptoms reported Female Genitourinary: No symptoms reported Musculoskeletal: No symptoms reported Skin: No symptoms reported Hematologic/Lymphatic: No symptoms reported Neurological/Psychological: No symptoms reported Physical Exam - Vital signs Vitals: Temp Pulse Resp BP Pulse Ox 97.9 F 51 L 18 124/86 H 96 09/06/18 14:33 09/06/18 14:33 09/06/18 14:33 09/06/18 14:33 09/06/18 14:33 - Notes Notes: PHYSICAL EXAMINATION: GENERAL: Well-appearing, well-nourished and in no acute distress. HEAD: Atraumatic, normocephalic. EYES: Pupils equal round and reactive to light, extraocular movements intact, conjunctiva are normal. ENT: Nares patent, oropharynx clear without exudates. Moist mucous membranes. NECK: Normal range of motion, supple without lymphadenopathy LUNGS: Breath sounds clear to auscultation bilaterally and equal. No wheezes rales or rhonchi. HEART: Regular rate and rhythm without murmurs ABDOMEN: BS in all quads. Soft, nontender, nondistended abdomen. No guarding, no rebound. No masses appreciated. CVA tenderness bilaterally Female : deferred Musculoskeletal: Normal range of motion, no pitting or edema. No cyanosis. NEUROLOGICAL: Cranial nerves grossly intact. Normal speech, normal gait. Normal sensory, motor exams PSYCH: Normal mood, normal affect. SKIN: Warm, Dry, normal turgor, no rashes or lesions noted. 22-like and then on the other half of a flight Course - Re-evaluation Re-evalutation: 09/06/18 16:53 88-year-old female with a medical history of hypertension COPD who does smoke daily presents for complaints of "bubbling" in her stomach. Reports she has had this issue for the last 2 to 3 months. Has been seen by her primary care provider for this issue. Patient's last bowel movement was yesterday and has been drinking eating without any issues. Has been seen multiple times in [place] for GI issues with her primary care provider., States she was seen last month and told she had a B12 deficiency. Patient did not follow up with a GI doctor, patient was seen this past December in the emergency room for a cough, it was found out then that she had a lung nodule, patient not followed up with a assembler erector for this. Discussed with patient today that her CBC was negative for leukocytosis or anemia, CMP negative for hepatic or renal dysfunction, electrolytes without any disturbances, urinalysis negative for any hematuria. CT abdomen pelvis shows that patient has nodules on her bilateral kidneys as well as a a right middle lobe lung nodule that is presently 5 mm, this is unchanged from CT of the chest was done in December 2018. Discussed with patient that patient will require of her kidneys and bone for further evaluation of the patient, will refer patient to a assembler erector, zipper measurer, data processing systems project planner, as well as primary care provider. Diuretic therapy with [facility]. Has not had any fevers, has remained stable brought food with her and is eating when this provider came in. Patient is not in any distress. discussed case with Dr. Savage Eid, supervising physician, patient would be appropriate to have outpatient evaluation for bilateral kidney lesions and lung nodule with appropriate specialist. I have reevaluated this patient multiple times and no significant life threatening changes, no signs of toxicity, sepsis or peritonitis are noted. The patient and I have discussed the diagnosis and risks, and we agree with discharging home and close follow-up. We also discussed returning to the Emergency Department immediately if new or worsening symptoms occur with the understanding that symptoms and presentations can change. At this time will discharge with return precautions and follow-up recommendations. Verbal discharge instructions given a the bedside and opportunity for questions given. We have discussed the symptoms which are most concerning (e.g., saddle anesthesia ,vomiting, severe abd pain, fever, urinary or bowel incontinence or retention, changing or worsening pain) that necessitate immediate return. Medication warnings reviewed. All questions and concerns answered by this provider. Patient is in agreement with this plan and has verbalized understanding of return precautions and the need for primary care follow-up in the next 24-72 hours. Patient and daugher verbalized understanding of plan of care and agree with plan of care. - Vital Signs Vital signs: Temp Pulse Resp BP Pulse Ox 97.5 F 46 L 18 154/72 H 100 09/06/18 16:59 09/06/18 16:59 09/06/18 16:59 09/06/18 16:59 09/06/18 16:59 - Laboratory Result Diagrams: 09/06/18 15:10 09/06/18 15:10 Laboratory results interpreted by me: 09/06/18 09/06/18 15:10 15:10 Carbon Dioxide 32 H Total Protein 8.5 H Urine Urobilinogen 4.0 H Discharge - Discharge Clinical Impression: Lung nodule, Kidney lesion, Resolved abdominal pain Condition: Stable Disposition: HOME, SELF-CARE Instructions: Abdominal Pain ([facility]) Additional Instructions: Abdominal Pain There are many causes of abdominal pain. Pain can mean a serious problem requiring surgery (such as appendicitis). It can also be an innocent problem that goes away on its own (such as a viral infection). Often, time must pass to determine the cause of pain. The physician does not feel that hospitalization is necessary, at present. Things may change within the next 24 hours. Call the doctor or come back for re- examination if any problems occur, such as: (1) Pain that becomes more severe, steady, or becomes concentrated in one specific area. Also, pain that is more severe with movement or coughing. (2) Vomiting that persists or becomes more frequent. (3) Blood in the vomitus, urine, or bowel movements. Blood in the stool may have a tarry or black appearance. (4) Shaking chills or fever greater than 100 degrees F. (5) The abdomen becomes more distended or swollen. (6) Bowel movements cease. (7) Failure to improve as expected. Your blood work today was normal, you did not have an infection in your blood, your liver and kidney enzymes are normal urinalysis was normal. Your CT of your abdomen and pelvis showed that you have a nodule in your left lung which has been there since you were seen in December 2017 at [facility] [place] abdomen pelvis also show that you have nodules on both of your kidneys, you need to follow-up with an MRI. He been referred to a zipper measurer, data processing systems project planner, assembler erector and a primary care provider. You have established care in [place], it is advised that you establish care locally as you are in [place] for longer than your in [place]. Return immediately for any new or worsening symptoms. Follow up with primary care provider, call tomorrow to make followup a ppointment. Referrals: ADAM CONNORS MD [ACTIVE STAFF] - Follow up in 3-5 days SUHA HARRISON MD [ACTIVE STAFF] - Follow up in 3-5 days HERBERTH HO MD [ACTIVE STAFF] - Follow up in 3-5 days ANGELINA CASTRO MD [ACTIVE STAFF] - Follow up in 3-5 days
--- NOTE | 2018-09-06 16:25 | RADIOLOGY REPORT (SQ) ---
EXAM DESCRIPTION: CT ABD/PELVIS WITH IV ONLY COMPLETED DATE/TIME: 09/06/2018 4:10 pm REASON FOR STUDY: abd pain COMPARISON: None. TECHNIQUE: CT scan of the abdomen and pelvis performed using helical scanning technique with dynamic intravenous contrast injection. No oral contrast. Images reviewed with lung, soft tissue, and bone windows. Reconstructed coronal and sagittal MPR images reviewed. Delayed images for evaluation of the urinary system also acquired. All images stored on PACS. All CT scanners at this facility use dose modulation, iterative reconstruction, and/or weight based d osing when appropriate to reduce radiation dose to as low as reasonably achievable (ALARA). [facility]: Dose Right [facility]: CareDose [facility]: Dose Right [facility]: Teradose 4D [facility]: [employer] CONTRAST TYPE AND DOSE: contrast/concentration: Isovue 350.00 mg/ml; Total Contrast Delivered: 100.0 ml; Total Saline Delivered: 49.9 ml RENAL FUNCTION: BUN 18 creatinine 0.83. RADIATION DOSE: CT Rad equipment meets quality standard of care and radiation dose reduction techniq ues were employed. CTDIvol: 20.5 - 21.1 mGy. DLP: 2127 mGy-cm.. LIMITATIONS: None. FINDINGS: LOWER CHEST: Vague nodular lesion in the right middle lobe, incompletely imaged, measuring approximately 5 mm. LIVER: Normal size. No masses. No dilated ducts. SPLEEN: Normal size. No focal lesions. PANCREAS: No masses. No significant calcifications. No adjacent inflammation or peripancreatic fluid collections. Pancreatic duct not dilated. GALLBLADDER: No identified stones by CT criteria. No inflammatory changes to suggest cholecystitis. ADRENAL GLANDS: No significant masses or asymmetry. RIGHT KIDNEY AND URETER: 1.5 cm cortical lesion, not clearly cystic. Axial series 3 image 23. No s ignificant calcifications. No hydronephrosis or hydroureter. LEFT KIDNEY AND URETER: 1.8 cm cortical lesion, not clearly cystic. Axial series 5, image 33. No s ignificant calcifications. No hydronephrosis or hydroureter. AORTA AND VESSELS: No aneurysm. No dissection. Renal arteries, SMA, celiac without stenosis. RETROPERITONEUM: No retroperitoneal adenopathy, hemorrhage or masses. BOWEL AND PERITONEAL CAVITY: No masses or inflammatory changes. No free fluid or peritoneal masses. APPENDIX: Normal. PELVIS: No mass. No free fluid. Normal bladder. ABDOMINAL WALL: No masses. No hernias. BONES: No significant or acute findings. OTHER: No other significant finding. IMPRESSION: 1. SMALL CORTICAL LESIONS IN BOTH KIDNEYS WHICH ARE NOT CLEARLY CYSTIC. THESE COULD BE COMPLEX CYSTS CONTAINING HEMORRHAGIC MATERIAL OR DEBRIS. CANNOT EXCLUDE SOLID LESIONS. WOULD CONSIDER MRI OF THE KIDNEYS FOR MORE COMPLETE EVALUATION. 2. VAGUE NODULE IN THE RIGHT MIDDLE LOBE, MEASURING APPROXIMATELY 5 MM, INCOMPLETELY IMAGED. THIS WA S ALSO PRESENT ON A PRIOR CHEST CTA (12/21/2017). 3. NO OTHER SIGNIFICANT OR ACUTE FINDING IN THE ABDOMEN OR PELVIS ON CT SCAN WITH IV CONTRAST. TECHNICAL DOCUMENTATION: JOB ID: [id number] Quality ID # [id number]: Final reports with documentation of one or more dose reduction techniques (e.g., Au tomated exposure control, adjustment of the mA and/or kV according to patient size, use of iterative reconstruction technique) 2010 [employer]- All Rights Reserved Reading location - IP/workstation name: [email or web address]
[2018-09-06 17:33] VITALS: BP 154/72
== END 2018-09-06 17:36 | disposition home or self-care (01) ==
LOC: ER 14:22
DX: R10.9 Unspecified abdominal pain (principal); R91.1 Solitary pulmonary nodule; N28.9 Disorder of kidney and ureter, unspecified; F17.200 Nicotine dependence, unspecified, uncomplicated; I10 Essential (primary) hypertension; J44.9 Chronic obstructive pulmonary disease, unspecified
CPT/HCPCS: 36415; 74177; 80053; 81001; 83690; 85025; 99284

== ENCOUNTER 2018-12-17 10:45 | Emergency (ER) | payer MEDICARE, MEDICAID ==
--- NOTE | 2018-12-17 11:05 | ER Document Report ---
ED Medical Screen (RME) - General Chief Complaint: Sore Throat Stated Complaint: THROAT PAIN Time Seen by Provider: 12/17/18 10:55 Mode of Arrival: Wheelchair Information source: Patient, Relative Notes: 88-year-old female presented to ED for complaint of sore throat pain in her throat after she ate a piece out yesterday about 7 PM. She states she is got a very sore throat and then she is got a fishbone in the throat. She states she feels like something is moving in her throat. She is alert oriented respirations regular and unlabored she does have a history of heart murmur COPD high blood pressure 5 C-sections she lives with her family and she smokes a pack a day. Patient is able to speak full sentences. Patient is alert and oriented I have greeted and performed a rapid initial assessment of this patient. A comprehensive ED assessment and evaluation of the patient, analysis of test results and completion of medical decision making process will be conducted by an additional ED providers. Jasiel TRAVEL OUTSIDE OF THE [place].S. IN LAST 30 DAYS: No - Related Data Allergies/Adverse Reactions: No Known Allergies Allergy (Verified 12/17/18 10:47) Past Medical History - Social History Frequency of alcohol use: None Drug Abuse: None - Past Medical History Cardiac Medical History: Reports: Hx Hypertension Pulmonary Medical History: Reports: Hx COPD Renal/ Medical History: Denies: Hx Peritoneal Dialysis Past Surgical History: Reports: Hx Section - 5 Physical Exam - Vital signs Vitals: Temp Pulse Resp BP Pulse Ox 97.6 F 73 16 144/59 H 96 12/17/18 10:53 12/17/18 10:53 12/17/18 10:53 12/17/18 10:53 12/17/18 10:53 Course - Vital Signs Vital signs: Temp Pulse Resp BP Pulse Ox 97.6 F 73 16 144/59 H 96 12/17/18 10:53 12/17/18 10:53 12/17/18 10:53 12/17/18 10:53 12/17/18 10:53
--- NOTE | 2018-12-17 11:27 | RADIOLOGY REPORT (SQ) ---
EXAM DESCRIPTION: SOFT TISSUE NECK COMPLETED DATE/TIME: 12/17/2018 11:15 am REASON FOR STUDY: PA and lateral of neck swallowed fishbone COMPARISON: None. NUMBER OF VIEWS: Two views. TECHNIQUE: AP and lateral radiographic image of the soft tissues of the neck. LIMITATIONS: None. FINDINGS: EPIGLOTTIS: Normal. Contour normal. Aryepiglottic folds normal. PREVERTEBRAL SOFT TISSUES: Normal. No soft tissue swelling. SUBGLOTTIC AREA: Normal. No narrowing. RETROPHARYNGEAL SPACE: Normal. No soft tissue masses. BONES: No significant findings. LUNG APICES: Normal. OTHER: No radiopaque foreign bodies are identified on conventional radiograph. IMPRESSION: NEGATIVE STUDY OF THE SOFT TISSUES OF THE NECK. TECHNICAL DOCUMENTATION: JOB ID: [id number] [employer]- All Rights Reserved Reading location - IP/workstation name: [email or web address]
[2018-12-17] MEDS ORDERED: LIDOCAINE 2% VISCOUS SOLN 20 ML UDCUP PO ONE (11:45)
[2018-12-17] MEDS ORDERED: MAG HYDROX/AL HYDROX/SIMETH SUSP 30 ML UDCUP PO ONE (11:45)
[2018-12-17] MEDS ORDERED: METOCLOPRAMIDE HCL ORAL SOLN 10 MG/10 ML UDCUP PO ONE (11:45)
--- NOTE | 2018-12-17 12:04 | ER Document Report ---
ED ENT - General Chief Complaint: Sore Throat Stated Complaint: THROAT PAIN Time Seen by Provider: 12/17/18 10:55 Mode of Arrival: Wheelchair Notes: Patient is an 88-year-old female history of COPD, hypertension presents to the emergency department for a "fishbone that scratched my neck." Patient states yesterday evening around 1900 hrs. she was eating a [employer] fish fillet sandwich. States she felt immediately something scratch the inside of her throat. States she stopped eating the sandwich. Patient states she is got generalized pain only when she swallows. Patient's denying any respiratory distress or vomiting. Patient denies any fever, URI symptoms. Patient and family deny any history of esophageal strictures or trouble swallowing in the past. TRAVEL OUTSIDE OF THE [place] IN LAST 30 DAYS: No - Related Data Allergies/Adverse Reactions: No Known Allergies Allergy (Verified 12/17/18 10:47) Past Medical History - General Information source: Patient, Relative - Social History Smoking Status: Current Every Day Smoker Frequency of alcohol use: None Drug Abuse: None Family History: None Patient has suicidal ideation: No Patient has homicidal ideation: No - Past Medical History Cardiac Medical History: Reports: Hx Hypertension Pulmonary Medical History: Reports: Hx COPD Renal/ Medical History: Denies: Hx Peritoneal Dialysis Past Surgical History: Reports: Hx Section - 5 Review of Systems - Review of Systems Constitutional: denies: Fever EENT: See HPI Cardiovascular: No symptoms reported Respiratory: No symptoms reported Gastrointestinal: No symptoms reported Genitourinary: No symptoms reported Female Genitourinary: No symptoms reported Musculoskeletal: No symptoms reported Skin: No symptoms reported Hematologic/Lymphatic: No symptoms reported Neurological/Psychological: No symptoms reported Physical Exam - Vital signs Vitals: Temp Pulse Resp BP Pulse Ox 97.6 F 73 16 144/59 H 96 12/17/18 10:53 12/17/18 10:53 12/17/18 10:53 12/17/18 10:53 12/17/18 10:53 - Notes Notes: GENERAL: Alert, interacts well. No acute distress. HEAD: Normocephalic, atraumatic. EYES: Pupils equal, round, and reactive to light. Extraocular movements intact. ENT: Oral mucosa moist, tongue midline. Tonsils +1 bilaterally and symmetrical, pharynx within normal limits. Patient able to swallow with no difficulty. NECK: Full range of motion. Supple. Trachea midline. No lymphadenopathy appreciated LUNGS: Clear to auscultation bilaterally, no wheezes, rales, or rhonchi. No respiratory distress. HEART: Regular rate and rhythm. No murmur ABDOMEN: Soft, non-tender. Non-distended. Bowel sounds present in all 4 quadrants. EXTREMITIES: Moves all 4 extremities spontaneously. No edema, normal radial and dorsalis pedis pulses bilaterally. No cyanosis. BACK: no cervical, thoracic, lumbar midline tenderness. No saddle anesthesia, normal distal neurovascular exam. NEUROLOGICAL: Alert and oriented x3. Normal speech. cranial nerves II through XII grossly intact PSYCH: Normal affect, normal mood. SKIN: Warm, dry, normal turgor. No rashes or lesions noted. Course - Re-evaluation Re-evalutation: 12/17/18 12:01 Soft Tissue Neck X-Ray 12/17/18 11:03 IMPRESSION: NEGATIVE STUDY OF THE SOFT TISSUES OF THE NECK. Patient's x-ray reveals no obvious foreign bodies. Patient's in no respiratory distress, is able to swallow with no difficulty. Discussed use of Magic mouthwash for symptomatic relief. Discussed close follow-up with primary care provider and inevitable referral to gastroenterology for a scope as needed. Patient and family in room with patient voiced understanding. At this time will discharge with return precautions and follow-up recommendations. Verbal discharge instructions given a the bedside and opportunity for questions given. Medication warnings reviewed. Patient is in agreement with this plan and has verbalized understanding of return precautions and the need for primary care follow-up in the next 24-72 hours. This medical record was dictated with voice recognizing software. There may be grammatical, syntax errors that are unintended. - Vital Signs Vital signs: Temp Pulse Resp BP Pulse Ox 97.6 F 73 16 144/59 H 96 12/17/18 10:53 12/17/18 10:53 12/17/18 10:53 12/17/18 10:53 12/17/18 10:53 Discharge - Discharge Clinical Impression: Foreign body sensation in throat Condition: Stable Disposition: HOME, SELF-CARE Additional Instructions: As we discussed you have been seen and treated in the emergency department for a suspected fishbone in your throat. Your x-ray reveals no signs of abnormalities. Unfortunately some foreign bodies do not show up on x-ray. Should you continue with generalized discomfort in the next couple of days please follow-up with your primary care provider and inevitably gastroenterology. They would be able to put a camera down your throat to look i nto your esophagus. Please also make sure you return to the emergency room should he have any respiratory distress or further concerns.
[2018-12-17 12:14] VITALS: BP 123/59
== END 2018-12-17 12:15 | disposition home or self-care (01) ==
LOC: ER 10:45
DX: R09.89 Other specified symptoms and signs involving the circulatory and respiratory systems (principal); R07.0 Pain in throat; J44.9 Chronic obstructive pulmonary disease, unspecified; I10 Essential (primary) hypertension; F17.200 Nicotine dependence, unspecified, uncomplicated
CPT/HCPCS: 99283; 70360; J3490; A9270

== ENCOUNTER 2019-12-29 12:54 | Emergency (ER) | payer MEDICARE, MEDICAID ==
--- NOTE | 2019-12-29 13:31 | ER Document Report ---
ED Medical Screen (RME) - General Chief Complaint: Abdominal Pain Stated Complaint: ABDOMINAL PAIN Time Seen by Provider: 12/29/19 13:16 TRAVEL OUTSIDE OF THE U.S. IN LAST 30 DAYS: No - HPI Notes: 12/29/19 13:27 89-year-old female with a history of COPD and hypertension presents to the emergency room today for complaints of epigastric and left upper quadrant abdominal pain that is been on and off for the last 3 months. Patient was diagnosed with a UTI constipation by her primary care provider, was placed on erythromycin with a mild laxative. Patient states she still having abdominal pain. States her last bowel movement was yesterday. Denies any nausea vomiting diarrhea, denies any chest pain, shortness of breath, fevers or chills. Pain is not any worse with eating or drinking. Patient has not had any abdominal surgeries still has her gallbladder and her appendix. I have greeted and performed a rapid initial assessment of this patient. A comprehensive ED assessment and evaluation of the patient, analysis of test results and completion of the medical decision making process will be conducted by additional ED providers. PHYSICAL EXAMINATION: GENERAL: Chronically-ill well-nourished and in no acute distress. HEAD: Atraumatic, normocephalic. NECK: Normal range of motion CV: bradycardia LUNGS: No respiratory distress abd: LUQ, epigastric pain 12/29/19 13:30 - Related Data Allergies/Adverse Reactions: No Known Allergies Allergy (Verified 12/29/19 13:15) Past Medical History - Social History Chew tobacco use (# tins/day): No Frequency of alcohol use: None Drug Abuse: None - Past Medical History Cardiac Medical History: Reports: Hx Hypertension Pulmonary Medical History: Reports: Hx COPD Renal/ Medical History: Denies: Hx Peritoneal Dialysis Past Surgical History: Reports: Hx Section - 5 Physical Exam - Vital signs Vitals: Temp Pulse Resp BP Pulse Ox 98.7 F 45 L 20 152/52 H 100 12/29/19 13:07 12/29/19 13:07 12/29/19 13:07 12/29/19 13:07 12/29/19 13:07 Course - Vital Signs Vital signs: Temp Pulse Resp BP Pulse Ox 98.7 F 45 L 20 152/52 H 100 12/29/19 13:16 12/29/19 13:07 12/29/19 13:07 12/29/19 13:07 12/29/19 13:07
[2019-12-29 14:04] LABS: HEMATOCRIT 36.1 % (36.0-47.0); HEMOGLOBIN 12.2 g/dL (12.0-15.5); MEAN CORPUSCULAR HEMOGLOBIN 31.3 pg (27.0-33.4); MEAN CORPUSCULAR HGB CONC 33.8 g/dL (32.0-36.0); MEAN CORPUSCULAR VOLUME 93 fl (80-97); PLATELET COUNT 311 10^3/uL (150-450); RED CELL DISTRIBUTION WIDTH 14.6 % (11.5-14.0)
--- NOTE | 2019-12-29 14:13 | ER Document Report ---
ED GI/ - General Chief Complaint: Abdominal Pain Stated Complaint: ABDOMINAL PAIN Time Seen by Provider: 12/29/19 13:16 Mode of Arrival: Wheelchair Information source: Patient, Relative - Daughter Notes: 89-year-old female patient presenting to the emergency department concern for abdominal pain. Patient reports abdominal pain ongoing intermittently over the last year. She states that she sometimes has problems with constipation. She was diagnosed with UTI about 1 month ago, she took 5 days of erythromycin. She states her symptoms got better but now the abdominal pain has returned. She reports abdominal pain is typically in the left lower quadrant and comes and goes with no alleviating or exacerbating factors. She denies any recent fever, chills, dysuria, urinary frequency, nausea, vomiting or diarrhea. TRAVEL OUTSIDE OF THE [place] IN LAST 30 DAYS: No - HPI Patient complains to provider of: Abdominal pain Onset: Other - "months" Timing/Duration: Intermittent Quality of pain: Achy, Sharp Severity at maximum: Moderate Severity in ED: Mild - Related Data Allergies/Adverse Reactions: No Known Allergies Allergy (Verified 12/29/19 13:15) Past Medical History - General Information source: Patient - Social History Smoking Status: Former Smoker Chew tobacco use (# tins/day): No Frequency of alcohol use: None Drug Abuse: None Family History: None Patient has homicidal ideation: No - Past Medical History Cardiac Medical History: Reports: Hx Hypertension Pulmonary Medical History: Reports: Hx COPD Renal/ Medical History: Denies: Hx Peritoneal Dialysis Past Surgical History: Reports: Hx Section - 5 Review of Systems - Review of Systems Gastrointestinal: Abdominal pain -: Yes All other systems reviewed and negative Physical Exam - Vital signs Vitals: Temp Pulse Resp BP Pulse Ox 98.7 F 45 L 20 152/52 H 100 12/29/19 13:07 12/29/19 13:07 12/29/19 13:07 12/29/19 13:07 12/29/19 13:07 - Notes Notes: PHYSICAL EXAMINATION: GENERAL: Well-appearing, well-nourished and in no acute distress. HEAD: Atraumatic, normocephalic. EYES: Pupils equal round and reactive to light, extraocular movements intact, conjunctiva are normal. ENT: Nares patent, oropharynx clear without exudates. Moist mucous membranes. NECK: Normal range of motion, supple without lymphadenopathy LUNGS: Breath sounds clear to auscultation bilaterally and equal. No wheezes rales or rhonchi. HEART: Regular rate and rhythm without murmurs ABDOMEN: Soft, nontender, nondistended abdomen. No guarding, no rebound. No masses appreciated. Female : deferred Musculoskeletal: Normal range of motion, no pitting or edema. No cyanosis. NEUROLOGICAL: Cranial nerves grossly intact. Normal speech. Normal sensory, motor exams PSYCH: Normal mood, normal affect. SKIN: Warm, Dry, normal turgor, no rashes or lesions noted. Course - Re-evaluation Re-evalutation: 12/29/19 14:12 Patient appears well, nontoxic. Vital signs reviewed. Her heart rate is low however upon review of records she has been here multiple times with a heart rate in the high 40s to mid 50s. She reports intermittent left lower quadrant abdominal pain. She currently denies any pain. Labs are pending. Patient will be taken for CT with IV contrast as soon as her creatinine is back. Her daughter is at bedside. Patient's work-up today was benign. Her labs were unremarkable. CT abdomen pelvis with no acute pathology. This was discussed with the patient. Patient believes she may be having gas. There is a persistent pulmonary nodule noted on the CT. This has been there since at least 2018. The patient denies any knowledge of this. A copy of the CAT scan was given to the patient. She will follow-up with her primary care provider. She has not had any respiratory symptoms. Upon review of patient's records patient was made aware of the pulmonary nodule on her discharge instructions during the visit that it was found. This was also discussed with patient. Patient states she may have forgotten. Patient's daughter is bedside and states she will make sure this is followed up on. - Vital Signs Vital signs: Temp Pulse Resp BP Pulse Ox 98.7 F 45 L 20 152/52 H 100 12/29/19 13:16 12/29/19 13:07 12/29/19 13:07 12/29/19 13:07 12/29/19 13:07 - Laboratory Result Diagrams: 12/29/19 13:40 12/29/19 13:40 Laboratory results interpreted by me: 12/29/19 12/29/19 12/29/19 13:40 13:40 16:37 RDW 14.6 H Anion Gap 4 L Urine Ascorbic Acid 20 H - Diagnostic Test Radiology reviewed: Image reviewed, Reports reviewed - EKG Interpretation by Me EKG shows normal: Sinus rhythm Rate: Bradycardia Rhythm: NSR When compared to previous EKG there are: No significant change - LVH noted on EKG. Rate 46. This is unchanged from previous EKG. There is no concerning findings today. Discharge - Discharge Clinical Impression: Pulmonary nodule Abdominal pain Qualifiers: Abdominal location: left lower quadrant Qualified Code(s): R10.32 - Left lower quadrant pain Condition: Stable Disposition: HOME, SELF-CARE Additional Instructions: Your abdominal pain work-up today was reassuring. I did not find any life- threatening cause of your abdominal pain. You can try taking the medication that I have prescribed as this may help with your symptoms. You did have a pulmonary nodule noted on your CAT scan. This is something that you should bring to the attention of your primary care provider so that they can make a plan for follow-up and or monitoring. Please return to the emergency department for any new or worsening concerns. Prescriptions: Dicyclomine HCl [Bentyl 20 mg Tablet] 20 mg PO TID #30 tablet
[2019-12-29 14:18] LABS: ALBUMIN 3.5 g/dL (3.5-5.0); ALKALINE PHOSPHATASE 67 U/L (38-126); ASPARTATE AMINO TRANSFERASE 25 U/L (14-36); BILIRUBIN,TOTAL 0.3 mg/dL (0.2-1.3); BLOOD UREA NITROGEN 20 mg/dL (7-20); CALCIUM 9.2 mg/dL (8.4-10.2); CARBON DIOXIDE 30 mmol/L (22-30); CHLORIDE 105 mmol/L (98-107); GLUCOSE 92 mg/dL (75-110); TOTAL PROTEIN 7.3 g/dL (6.3-8.2)
--- NOTE | 2019-12-29 14:19 | RADIOLOGY REPORT (SQ) ---
EXAM DESCRIPTION: CHEST 2 VIEWS IMAGES COMPLETED DATE/TIME: 12/29/2019 2:06 pm REASON FOR STUDY: epigastric pain COMPARISON: 01/03/2018 EXAM PARAMETERS: NUMBER OF VIEWS: two views TECHNIQUE: Digital Frontal and Lateral radiographic views of the chest acquired. RADIATION DOSE: NA LIMITATIONS: none FINDINGS: LUNGS AND PLEURA: Linear atelectasis in the right lung base. No effusions. MEDIASTINUM AND HILAR STRUCTURES: No masses or contour abnormalities. HEART AND VASCULAR STRUCTURES: Heart normal size. No evidence for failure. BONES: Degenerative changes in the dorsal spine. HARDWARE: None in the chest. OTHER: No other significant finding. IMPRESSION: Linear atelectasis in the right lung base. No effusions. TECHNICAL DOCUMENTATION: JOB ID: [id number] 2010 [employer]- All Rights Reserved Reading location - IP/workstation name: [email or web address]
[2019-12-29 14:24] LABS: ANION GAP 4 (5-19)
[2019-12-29 14:26] LABS: ABSOLUTE MONOCYTES # (MANUAL) 0.3 10^3/uL (0.1-1.4); BASOPHILS % (MANUAL) 0 % (0-2); EOSINOPHILS % (MANUAL) 5 % (0-6); LYMPHOCYTES % (MANUAL) 25 % (13-45); MONOCYTES % (MANUAL) 7 % (3-13); SEGMENTED NEUTROPHILS % (MAN) 63 % (42-78); TOTAL CELLS COUNTED 100
[2019-12-29 14:27] LABS: ANISOCYTOSIS SLIGHT; PLATELET COMMENT ADEQUATE
--- NOTE | 2019-12-29 16:31 | RADIOLOGY REPORT (SQ) ---
EXAM DESCRIPTION: CT ABD/PELVIS WITH IV ONLY IMAGES COMPLETED DATE/TIME: 12/29/2019 4:07 pm REASON FOR STUDY: epigastric and LUQ abd pain x3m, worse today COMPARISON: 09/06/2018 TECHNIQUE: CT scan of the abdomen and pelvis performed using helical scanning technique with dynamic intravenous contrast injection. No oral contrast. Images reviewed with lung, soft tissue, and bone windows. Reconstructed coronal and sagittal MPR images reviewed. Delayed images for evaluation of the urinary system also acquired. All images stored on PACS. All CT scanners at this facility use dose modulation, iterative reconstruction, and/or weight based d osing when appropriate to reduce radiation dose to as low as reasonably achievable (ALARA). [facility]: Dose Right [facility]: CareDose [facility]: Dose Right [facility]: Teradose 4D [facility]: [employer] CONTRAST TYPE AND DOSE: contrast/concentration: Isovue 350.00 mmol/ml; Total Contrast Delivered: 100 .0 ml; Total Saline Delivered: 41.9 ml RENAL FUNCTION: BUN 20 creatinine 0.81 RADIATION DOSE: CT Rad equipment meets quality standard of care and radiation dose reduction techniq ues were employed. CTDIvol: 18.7 - 21.1 mGy. DLP: 1992 mGy-cm.. LIMITATIONS: None. FINDINGS: LOWER CHEST: There is a 7.6 mm nodule on the right on image 1 series 4. This is stable. LIVER: Normal size. No masses. No dilated ducts. SPLEEN: Normal size. No focal lesions. PANCREAS: No masses. No significant calcifications. No adjacent inflammation or peripancreatic fluid collections. Pancreatic duct not dilated. GALLBLADDER: No identified stones by CT criteria. No inflammatory changes to suggest cholecystitis. ADRENAL GLANDS: No significant masses or asymmetry. RIGHT KIDNEY AND URETER: No solid masses. No significant calcifications. No hydronephrosis or hyd roureter. LEFT KIDNEY AND URETER: No solid masses. No significant calcifications. No hydronephrosis or hydr oureter. AORTA AND VESSELS: No aneurysm. No dissection. Renal arteries, SMA, celiac without stenosis. RETROPERITONEUM: No retroperitoneal adenopathy, hemorrhage or masses. BOWEL AND PERITONEAL CAVITY: No masses or inflammatory changes. No free fluid or peritoneal masses. APPENDIX: Normal. PELVIS: No mass. No free fluid. Normal bladder. ABDOMINAL WALL: No masses. No hernias. BONES: No significant or acute findings. OTHER: No other significant finding. IMPRESSION: 1. Stable 7.6 mm right pulmonary nodule. 2. No acute findings in the abdomen or pelvis. TECHNICAL DOCUMENTATION: JOB ID: [id number] Quality ID # [id number]: Final reports with documentation of one or more dose reduction techniques (e.g., Au tomated exposure control, adjustment of the mA and/or kV according to patient size, use of iterative reconstruction technique) 2010 [employer]- All Rights Reserved Reading location - IP/workstation name: [email or web address]
[2019-12-29 17:37] LABS: APPEARANCE,URINE CLEAR; BILIRUBIN,URINE NEGATIVE (NEGATIVE); COLOR,URINE YELLOW; GLUCOSE, URINE NEGATIVE (NEGATIVE); KETONES,URINE NEGATIVE (NEGATIVE); LEUKOCYTE ESTERASE,URINE NEGATIVE (NEGATIVE); NITRITE,URINE NEGATIVE (NEGATIVE); PROTEIN,URINE NEGATIVE (NEGATIVE); URINE SPECIFIC GRAVITY 1.014; UROBILINOGEN,URINE NEGATIVE mg/dL (<2.0)
[2019-12-29 19:16] VITALS: BP 121/49
--- NOTE | 2019-12-30 09:25 | EKG REPORT ---
SEVERITY:- ABNORMAL ECG - SINUS BRADYCARDIA RIGHT BUNDLE BRANCH BLOCK LVH WITH IVCD AND SECONDARY REPOL ABNRM : Confirmed by: Yulisa Lauren 30-Dec-2019 09:24:21
== END 2019-12-29 18:45 | disposition home or self-care (01) ==
LOC: ER 12:54
DX: R91.1 Solitary pulmonary nodule (principal); R10.32 Left lower quadrant pain; K59.00 Constipation, unspecified
CPT/HCPCS: 36415; 71046; 74177; 80053; 81001; 83690; 85025; 87086; 93005; 93010; 99284

== ENCOUNTER 2020-01-12 19:54 | Emergency (ER) | payer MEDICARE, MEDICAID ==
--- NOTE | 2020-01-12 21:12 | ER Document Report ---
ED General - General Chief Complaint: Chest Tightness Stated Complaint: CHEST TIGHTNESS/SHORTNESS OF BREATH TRAVEL OUTSIDE OF THE [place] IN LAST 30 DAYS: No - HPI Notes: 89-year-old female history of hypertension and COPD presents with concern about a moment 2 days ago when patient had chest tightness and shortness of breath. Patient cannot recall what she was doing when symptoms occurred, describes having a momentary sensation like there was a lump in her throat and was short of breath for the past after few seconds. Patient presents to ED now to have that episode evaluated because of family. Patient has felt well since that moment of symptoms. Patient denies having chest pain when she exerts herself. Has not needed to use her albuterol rescue inhaler recently. Patient denies having any cough, fever, lower extremity edema, difficulty swallowing, change in weight, sore throat, sick contacts. Patient also inquires about her chronic intermittent constipation. This is been present for many years and she has seen her primary doctor about it and intermittently takes MiraLAX. She still having bowel movements and usually skips a day last bowel movement yesterday. She has had no straining with inability to pass stool, no abdominal pain, no vomiting, but wonders if there is anything else that she can take in general for her constipation. - Related Data Allergies/Adverse Reactions: No Known Allergies Allergy (Verified 01/12/20 21:07) Past Medical History - General Information source: Patient, [facility] Records - Social History Smoking Status: Unknown if Ever Smoked Family History: None - Past Medical History Cardiac Medical History: Reports: Hx Hypertension Pulmonary Medical History: Reports: Hx COPD Renal/ Medical History: Denies: Hx Peritoneal Dialysis Past Surgical History: Reports: Hx Section - 5 Review of Systems - Review of Systems Notes: REVIEW OF SYSTEMS: CONSTITUTIONAL : Denies fever, chills, or sweats. EENT: Denies recent cold/sinus symptoms, denies throat pain CARDIOVASCULAR: Denies chest pain, DEYSI RESPIRATORY: Denies cough, denies shortness of breath. GASTROINTESTINAL: Denies abdominal pain, nausea/vomiting. GENITOURINARY: Denies difficulty urinating, painful urination. FEMALE GENITOURINARY: Denies abnormal vaginal bleeding, vaginal discharge. MUSCULOSKELETAL: Denies neck pain, back pain. SKIN: Denies rash or skin lesions. HEMATOLOGIC : Denies easy bruising or bleeding. LYMPHATIC: Denies swollen, enlarged glands. NEUROLOGICAL: Denies headache, denies change in gait. PSYCHIATRIC: Denies anxiety or stress or depression. Physical Exam - Vital signs Vitals: Temp Pulse Resp BP Pulse Ox 98.3 F 62 13 178/59 H 100 01/12/20 20:02 01/12/20 20:02 01/12/20 20:02 01/12/20 20:02 01/12/20 20:02 - Notes Notes: PHYSICAL EXAMINATION: GENERAL: Very well-appearing, well-nourished, talkative pleasant smiling elderly woman sitting at edge of exam stretcher in no acute distress. HEAD: Atraumatic, normocephalic. EYES: Pupils equal round and appropriate constriction, sclera anicteric, conjunctiva are normal. ENT: nares patent, moist mucous membranes. NECK: Normal range of motion, supple without lymphadenopathy LUNGS: Breath sounds clear to auscultation bilaterally and equal. No wheezes rales or rhonchi. HEART: Regular rate and rhythm without murmurs ABDOMEN: Soft, nontender, no guarding, no masses, no CVAT EXTREMITIES: Normal range of motion, no pitting or edema. No cyanosis. NEUROLOGICAL: Awake, alert, conversing appropriately, moves all extremities spontaneously. PSYCH: Normal mood, normal affect. SKIN: Warm, Dry, normal turgor, no rashes or lesions noted. Course - Re-evaluation Re-evalutation: 01/13/20 01:57 Patient with transient chest pain and shortness of breath 2 days ago, currently asymptomatic, very well-appearing and normal physical exam, hypertensive but otherwise normal vitals. Given patient's age and risk factors I obtained EKG troponin BNP chest x-ray. Chest x-ray improved from prior with very slight pulmonary edema, BNP however insufficient elevation to diagnose CHF exacerbation and clinically patient is not overloaded. Obtain VBG which showed fully compensated chronic respiratory acidosis consistent with COPD, but no current COPD exacerbation present. No signs of acute ischemia on EKG, patient's EKG as diffuse T wave inversions and ST elevation in aVR but this has been patient's EKG on multiple prior presentations and is not significantly changed from prior. Patient has mild chronic constipation but no signs of obstruction, patient still passing stool and gas, no abdominal pain, no vomiting. Gave patient education on using a spacer if she does need to use her albuterol rescue inhaler and will send to pharmacy. Gave education constipation which patient demonstrated understanding of. Patient has PCP and health program director who she will follow-up with. Gave patient extensive return to ED precautions which she also showed understanding of. Patient demonstrated agreement with the treatment plan and patient and family denied having any other questions or concerns at time of discharge. Patient's grandson is campus security director at [employer]. - Vital Signs Vital signs: Temp Pulse Resp BP Pulse Ox 98.3 F 62 19 133/62 H 99 01/12/20 21:07 01/12/20 20:02 01/13/20 02:31 01/13/20 02:31 01/13/20 02:31 - Laboratory Result Diagrams: 01/12/20 20:30 01/13/20 00:09 Laboratory results interpreted by me: 01/12/20 01/13/20 01/13/20 20:30 00:09 00:09 RDW 14.5 H AST 39 H NT-Pro-B Natriuret Pep 551 H - EKG Interpretation by Me Additional EKG results interpreted by me: 01/12/20 21:11 Heart rate 55, sinus rhythm, right bundle branch block, no significant ST elevations, no significant ST depressions, diffuse T wave inversions most prominent in precordial leads not significantly changed from multiple prior EKGs Discharge - Discharge Clinical Impression: Chest pain Qualifiers: Chest pain type: unspecified Qualified Code(s): R07.9 - Chest pain, unspecified Disposition: HOME, SELF-CARE Additional Instructions: Constipation Constipation is a common problem. It is especially likely as you get older. Constipation is a common cause of abdominal pain, but sometimes causes no symptoms at all. Causes of constipation include certain medications, dehydration, diets, inactivity, and low-fiber intake. Rarely, it can be a symptom of underlying disease. The physician has evaluated you for this. Avoid constipation by eating a diet high in fiber, fruits, and vegetables. Get regular exercise. If possible, avoid constipating medicines like narcotic pain medication. Some vitamin tablets can cause constipation. Stool softeners may be needed for difficult cases. Laxatives are useful for occasional constipation. You should use them only when necessary. Too-frequent use can make your bowels dependent on them. Some over the counter laxatives available without prescription are: Milk of Magnesia, 1-2 tablespoons twice a day Dulcolax, 5 mg pill or 10 mg suppository. Citrate of Magnesia, 4-5 ounces a day for a day or two For acute constipation, Fleet's Enemas and Dulcolax suppositories are helpful. Chronic, [facility] use of laxatives or enemas is not a good idea. Your bowel may become dependant on them. You do not need to have a bowel movement every day. Many people do fine with a bowel movement every three or four days. You should call your doctor or return for re-evaluation if you pass blood in the stool, or if you develop fever or increasing abdominal pain. Drink one additional cup of water each day over the next few days with a half dose of fiber supplementation. You can use Metamucil powder, Metamucil tablets, or fiber Gummies which can be found at any drugstore. Take the half dose of whichever fiber supplement you choose for the first week and then take the regular dose after that. I have sent a spacer to your pharmacy which you should use whenever you need to use your albuterol inhaler. Attached the albuterol inhaler to 1 end of the spacer and put the other end of the spacer in your mouth. Pump albuterol once and take 3 deep breaths in and out through the spacer and then repeat for a second puff of albuterol. Return to the emergency department immediately if you have any return of chest pain, dizziness, fainting, difficulty breathing, inability to pass gas, vomiting, belly pain, fever, or any other worsening or alarming symptoms. Follow-up with your primary doctor and health program director within 1 week. Prescriptions: Inhaler, Assist Devices [Space Chamber Plus] 1 each MC Q4HP PRN #1 spacer PRN Reason:
--- NOTE | 2020-01-12 21:57 | RADIOLOGY REPORT (SQ) ---
EXAM DESCRIPTION: XR CHEST 1 VIEW COMPLETED DATE/TME: 01/12/2020 21:14 CLINICAL HISTORY: 89 years, Female, SOB CP h/o htn copd EXAM DESCRIPTION: CLINICAL HISTORY: SOB CP h/o htn copd COMPARISON: 12/29/2019 FINDINGS: Single view of the chest is submitted. Mild pulmonary edema is slightly improved. Cardiac silhouette is mildly enlarged but improved. No focal parenchymal or pleural disease. No acute bony abnormality. There is pulmonary vascular engorgement. IMPRESSION: Mildly improved pulmonary edema.
[2020-01-12 22:46] LABS: INTERNATIONAL RATION (INR) 0.99; PROTHROMBIN TIME 13.3 SEC (11.4-15.4)
[2020-01-12 22:47] LABS: PARTIAL THROMBOPLASTIN TIME 31.2 SEC (23.5-35.8)
[2020-01-12 22:54] LABS: HEMATOCRIT 39.7 % (36.0-47.0); HEMOGLOBIN 13.2 g/dL (12.0-15.5); MEAN CORPUSCULAR HEMOGLOBIN 30.9 pg (27.0-33.4); MEAN CORPUSCULAR HGB CONC 33.2 g/dL (32.0-36.0); MEAN CORPUSCULAR VOLUME 93 fl (80-97); PLATELET COUNT 257 10^3/uL (150-450); RED BLOOD COUNT 4.27 10^6/uL (3.72-5.28); RED CELL DISTRIBUTION WIDTH 14.5 % (11.5-14.0); WHITE BLOOD COUNT 5.9 10^3/uL (4.0-10.5)
[2020-01-12 23:28] LABS: ABSOLUTE MONOCYTES # (MANUAL) 0.8 10^3/uL (0.1-1.4); ANISOCYTOSIS SLIGHT; BASOPHILS % (MANUAL) 0 % (0-2); EOSINOPHILS % (MANUAL) 2 % (0-6); LYMPHOCYTES % (MANUAL) 32 % (13-45); METAMYELOCYTES % (MANUAL) 1 % (0-1); MONOCYTES % (MANUAL) 13 % (3-13); PLATELET COMMENT ADEQUATE; SEGMENTED NEUTROPHILS % (MAN) 50 % (42-78); TOTAL CELLS COUNTED 100
[2020-01-13 00:22] LABS: VENOUS BLOOD BASE EXCESS 2.5 mmol/L; VENOUS BLOOD PCO2 52.2 mmHg (35-63); VENOUS BLOOD PH 7.36 (7.30-7.42)
[2020-01-13 01:09] LABS: ALBUMIN 3.8 g/dL (3.5-5.0); ALKALINE PHOSPHATASE 82 U/L (38-126); ANION GAP 8 (5-19); ASPARTATE AMINO TRANSFERASE 39 U/L (14-36); BILIRUBIN,DIRECT 0.1 mg/dL (0.0-0.4); BILIRUBIN,TOTAL 0.5 mg/dL (0.2-1.3); BLOOD UREA NITROGEN 17 mg/dL (7-20); CALCIUM 9.5 mg/dL (8.4-10.2); CARBON DIOXIDE 26 mmol/L (22-30); CHLORIDE 105 mmol/L (98-107); GLUCOSE 92 mg/dL (75-110); POTASSIUM 3.9 mmol/L (3.6-5.0); TOTAL PROTEIN 8.2 g/dL (6.3-8.2)
[2020-01-13 01:23] LABS: TROPONIN I 0.014 ng/mL
[2020-01-13 02:51] VITALS: BP 133/62
--- NOTE | 2020-01-13 07:25 | EKG REPORT ---
SEVERITY:- ABNORMAL ECG - SINUS RHYTHM RIGHT BUNDLE BRANCH BLOCK , LAFB. LVH WITH IVCD AND SECONDARY REPOL ABNRM : Confirmed by: Neymar Garcia MD 13-Jan-2020 07:24:26
== END 2020-01-13 02:54 | disposition home or self-care (01) ==
LOC: ER 19:54
DX: R07.89 Other chest pain (principal); J81.1 Chronic pulmonary edema; I10 Essential (primary) hypertension; J44.9 Chronic obstructive pulmonary disease, unspecified; R06.02 Shortness of breath; K59.09 Other constipation; I45.10 Unspecified right bundle-branch block
CPT/HCPCS: 36415; 71045; 80053; 82803; 83880; 84484; 85025; 85610; 85730; 93005; 93010; 99285

== ENCOUNTER 2020-02-24 13:13 | Emergency (ER) | payer MEDICARE, MEDICAID ==
[2020-02-24] MEDS ORDERED: TIZANIDINE HCL 4 MG TABLET PO ONE (14:14)
--- NOTE | 2020-02-24 14:15 | ER Document Report ---
ED Medical Screen (RME) - General Chief Complaint: Shoulder Pain Stated Complaint: ARM PAIN Time Seen by Provider: 02/24/20 14:03 Mode of Arrival: Wheelchair Information source: Patient, Relative Notes: HPI; 89-year-old female presents emergency room with her daughter complaining of a sudden onset of right shoulder pain for the past 3 days. History of arthritis. States she is been taking Tylenol without relief. Per daughter patient has also not been eating for the past 3 days. States that patient has been refusing to eat. Patient denies any chest pain, shortness of breath, no difficulty breathing. No explanation to why she is refusing to eat. Daughter states she is taking muscle relaxers in the past with relief of her arthritic pain. There is been no trauma or injury. Patient is right-handed. PE: Alert and oriented x3. Mild distress noted. Lungs: Clear to auscultation without rales, rhonchi, wheezes. Heart: Regular rate rhythm without murmurs, rubs, gallops. Decreased range of motion to right shoulder secondary to pain. There is tenderness on palpation to the right humerus no deformity is noted. I have greeted and performed a rapid initial assessment of this patient. A comprehensive ED assessment and evaluation of the patient, analysis of test results and completion of the medical decision making process will be conducted by additional ED providers. I have specifically instructed the patient or family members with the patient to immediately return to any nursing staff should anything change in the patient's condition or with their chief complaint. TRAVEL OUTSIDE OF THE [place] IN LAST 30 DAYS: No - Related Data Allergies/Adverse Reactions: No Known Allergies Allergy (Verified 01/12/20 21:07) Past Medical History - Social History Frequency of alcohol use: None Drug Abuse: None - Past Medical History Cardiac Medical History: Reports: Hx Hypertension Pulmonary Medical History: Reports: Hx COPD Renal/ Medical History: Denies: Hx Peritoneal Dialysis Past Surgical History: Reports: Hx Section - 5 Physical Exam - Vital signs Vitals: Temp Pulse Resp BP Pulse Ox 98.2 F 62 20 142/55 H 97 02/24/20 13:27 02/24/20 13:27 02/24/20 13:27 02/24/20 13:27 02/24/20 13:27 Course - Vital Signs Vital signs: Temp Pulse Resp BP Pulse Ox 98.2 F 62 20 142/55 H 97 02/24/20 13:27 02/24/20 13:27 02/24/20 13:27 02/24/20 13:27 02/24/20 13:27
--- NOTE | 2020-02-24 15:22 | RADIOLOGY REPORT (SQ) ---
EXAM DESCRIPTION: HUMERUS RIGHT IMAGES COMPLETED DATE/TIME: 02/24/2020 1:43 pm REASON FOR STUDY: pain. COMPARISON: None. NUMBER OF VIEWS: Two views. TECHNIQUE: Two radiographic images were acquired of the right humerus to include elbow and shoulder in at least one projection. LIMITATIONS: None. FINDINGS: MINERALIZATION: Osteopenia. BONES: Anterior inferior dislocation at the right shoulder. Probable tiny avulsion injury at the rig ht lateral humerus head. No acute displaced fracture. SOFT TISSUES: No obvious swelling or foreign body. OTHER: No other significant finding. IMPRESSION: Anterior inferior dislocation right glenohumeral joint. Possible avulsion injury right humeral head. TECHNICAL DOCUMENTATION: JOB ID: [id number] 2010 [employer]- All Rights Reserved Reading location - IP/workstation name: [email or web address]
--- NOTE | 2020-02-24 15:22 | RADIOLOGY REPORT (SQ) ---
Chest rate EXAM DESCRIPTION: CHEST SINGLE VIEW IMAGES COMPLETED DATE/TIME: 02/24/2020 1:43 pm REASON FOR STUDY: weakness COMPARISON: , 01/12/2020 EXAM PARAMETERS: NUMBER OF VIEWS: One view. TECHNIQUE: Single frontal radiographic view of the chest acquired. RADIATION DOSE: NA LIMITATIONS: None. FINDINGS: LUNGS AND PLEURA: No opacities, masses or pneumothorax. No pleural effusion. MEDIASTINUM AND HILAR STRUCTURES: No masses. Contour normal. HEART AND VASCULAR STRUCTURES: Heart normal in size. Normal vasculature. BONES: Possible anterior inferior dislocation right glenohumeral joint. HARDWARE: None in the chest. OTHER: No other significant finding. IMPRESSION: NO ACUTE RADIOGRAPHIC FINDING IN THE CHEST. TECHNICAL DOCUMENTATION: JOB ID: [id number] 2010 [employer]- All Rights Reserved Reading location - IP/workstation name: [email or web address]
[2020-02-24 15:53] LABS: APPEARANCE,URINE CLEAR; BILIRUBIN,URINE NEGATIVE (NEGATIVE); COLOR,URINE YELLOW; GLUCOSE, URINE NEGATIVE (NEGATIVE); KETONES,URINE TRACE mg/dL (NEGATIVE); LEUKOCYTE ESTERASE,URINE NEGATIVE (NEGATIVE); NITRITE,URINE NEGATIVE (NEGATIVE); PROTEIN,URINE 100 mg/dL (NEGATIVE)
[2020-02-24 16:29] LABS: ABSOLUTE BASOPHILS # (AUTO) 0.1 10^3/uL (0.0-0.2); ABSOLUTE EOSINOPHILS # (AUTO) 0.1 10^3/uL (0.0-0.6); ABSOLUTE LYMPHOCYTES (AUTO) 1.7 10^3/uL (0.5-4.7); ABSOLUTE MONOCYTES (AUTO) 1.1 10^3/uL (0.1-1.4); ABSOLUTE NEUT (AUTO) 4.9 10^3/uL (1.7-8.2); BASOPHILS % (AUTO) 1.3 % (0-2); EOSINOPHILS % (AUTO) 1.3 % (0-6); HEMATOCRIT 38.8 % (36.0-47.0); HEMOGLOBIN 13.2 g/dL (12.0-15.5); LYMPHOCYTES % (AUTO) 21.4 % (13-45); MEAN CORPUSCULAR HEMOGLOBIN 31.3 pg (27.0-33.4); MEAN CORPUSCULAR VOLUME 92 fl (80-97); MONOCYTES % (AUTO) 14.2 % (3-13); RED BLOOD COUNT 4.21 10^6/uL (3.72-5.28); RED CELL DISTRIBUTION WIDTH 13.1 % (11.5-14.0); SEGMENTED NEUTROPHILS % (AUTO) 61.8 % (42-78); TOTAL CELLS COUNTED % (AUTO) 100 %; WHITE BLOOD COUNT 7.9 10^3/uL (4.0-10.5)
[2020-02-24 16:34] LABS: ALBUMIN 3.8 g/dL (3.5-5.0); ALKALINE PHOSPHATASE 78 U/L (38-126); ANION GAP 11 (5-19); ASPARTATE AMINO TRANSFERASE 30 U/L (14-36); BILIRUBIN,DIRECT 0.4 mg/dL (0.0-0.4); BILIRUBIN,TOTAL 0.9 mg/dL (0.2-1.3); BLOOD UREA NITROGEN 27 mg/dL (7-20); CALCIUM 9.8 mg/dL (8.4-10.2); CARBON DIOXIDE 26 mmol/L (22-30); CHLORIDE 103 mmol/L (98-107); GLUCOSE 80 mg/dL (75-110); POTASSIUM 3.9 mmol/L (3.6-5.0)
[2020-02-24 16:55] LABS: PLATELET COUNT 255 10^3/uL (150-450)
--- NOTE | 2020-02-24 18:25 | EKG REPORT ---
SEVERITY:- ABNORMAL ECG - SINUS RHYTHM RIGHT BUNDLE BRANCH BLOCK LVH WITH IVCD AND SECONDARY REPOL ABNRM vs ISCHEMIA : Confirmed by: Yulisa Lauren 24-Feb-2020 18:25:22
--- NOTE | 2020-02-24 20:12 | ER Document Report ---
ED Extremity Problem, Upper - General Chief Complaint: Shoulder Pain Stated Complaint: ARM PAIN Time Seen by Provider: 02/24/20 14:03 Mode of Arrival: Wheelchair Information source: Patient Notes: 02/24/20 14:01 - ED Nursing Note by MALLORY ROCKWELL Acct Num: [id number] : 1930 Patient Age: 89 Addendum entered by MALLORY ROCKWELL RN 02/24/20 14:11: Daughter reports pt has not eaten in 3days, reports pt takes a vitamin for a ppetite but has been refusing to take it. Original Note: Pt presents to the ED for c/o shoulder pain. Pt states she started with R shoulder pain 3days ago. States she was sitting watching TV and pain came on suddenly like "something bit her". Reports limited ROM of RUE due to pain. Denies falling or injuring shoulder. Pt is A&Ox4, breaths e/u, NAD. Reports taking Tylenol without relief. ED Medical Screen ( OPERATING ROOM TECH - General Chief Complaint: Shoulder Pain Stated Complaint: ARM PAIN Time Seen by Provider: 02/24/20 14:03 Mode of Arrival: Wheelchair Information source: Patient, Relative Notes: HPI; 89-year-old female presents emergency room with her daughter complaining of a sudden onset of right shoulder pain for the past 3 days. History of arthritis. States she is been taking Tylenol without relief. Per daughter patient has also not been eating for the past 3 days. States that patient has been refusing to eat. Patient denies any chest pain, shortness of breath, no difficulty breathing. No explanation to why she is refusing to eat. Daughter states she is taking muscle relaxers in the past with relief of her arthritic pain. There is been no trauma or injury. Patient is right-handed. PE: Alert and oriented x3. Mild distress noted. Lungs: Clear to auscultation without rales, rhonchi, wheezes. Heart: Regular rate rhythm without murmurs, rubs, gallops. Decreased range of motion to right shoulder secondary to pain. There is tenderness on palpation to the right humerus no deformity is noted. MY NOTES 89-year-old black female arrives with her daughter with chief complaint of having right shoulder pain that occurred while she was watching TV and moving some heavy garbage bags. She felt some pain suddenly pop onto her shoulder. Patient has limited range of motion of her right shoulder due to pain. She denies any prior history of similar problems. She denies any trauma or abuse. She denies any falls. X-ray reveals a dislocation of right humeral head. I called Dr. Jarvis Morris orthopedics and advised I will attempt a reduction of the shoulder dislocation. I spoke to him at 2014. He agrees to the plan and will see the patient in the office. Her labs are all within normal limits. Attempt x1 by myself after 25 of ketamine and 25 of propofol was unsuccessful by 2129. X-ray of this area reveals the humerus outside the fossa. I called Dr. Jarvis Morris at 2134 to advise of this case. Dr. Jasbir Arnett called back at 2139 and advised he will see this patient in the office tomorrow and the x-rays appear to be chronic but the shoulder appears to be reduced. TRAVEL OUTSIDE OF THE [place] IN LAST 30 DAYS: No - HPI Patient complains to provider of: Right Onset: Other - x 3 days Recent injury: Possibly Where: Indoors Quality of pain: Achy - Related Data Allergies/Adverse Reactions: No Known Allergies Allergy (Verified 01/12/20 21:07) Past Medical History - General Information source: Patient, Relative - Social History Smoking Status: Former Smoker Cigarette use (# per day): No Chew tobacco use (# tins/day): No Smoking Education Provided: No Frequency of alcohol use: None Drug Abuse: None Lives with: Family Family History: None Patient has suicidal ideation: No Patient has homicidal ideation: No - Past Medical History Cardiac Medical History: Reports: Hx Hypertension Pulmonary Medical History: Reports: Hx COPD Renal/ Medical History: Denies: Hx Peritoneal Dialysis Past Surgical History: Reports: Hx Section - 5 Review of Systems - Review of Systems Constitutional: See HPI, Weakness, Recent illness. denies: Chills, Diaphoresis, Weight gain, Weight loss EENT: No symptoms reported. denies: See HPI, Eye discharge, Tearing, Ear pain, Ear discharge, Nose discharge, Sinus pressure, Sinus discharge Cardiovascular: No symptoms reported. denies: Chest pain, Heart racing, Orthopnea Respiratory: No symptoms reported, See HPI. denies: Cough, Hurts to breathe Gastrointestinal: No symptoms reported. denies: Constipation, Blood streaked bowels, Poor appetite, Blood in vomit Genitourinary: No symptoms reported. denies: Frequency, Flank pain, Incontinence Female Genitourinary: No symptoms reported. denies: Post menopausal, Heavy/a bnormal periods, Irregular period Musculoskeletal: See HPI, Joint pain, Joint swelling Skin: No symptoms reported Hematologic/Lymphatic: No symptoms reported Neurological/Psychological: No symptoms reported. denies: Weakness, Paralysis Physical Exam - Vital signs Vitals: Temp Pulse Resp BP Pulse Ox 98.2 F 62 20 142/55 H 97 02/24/20 13:27 02/24/20 13:27 02/24/20 13:27 02/24/20 13:27 02/24/20 13:27 Interpretation: Normal - HEENT Head: Normocephalic, Atraumatic Eyes: Normal Pupils: PERRL Sinus: Normal Nasal: Normal Mouth/Lips: Normal Mucous membranes: Normal Pharynx: Normal Neck: Normal - Respiratory Respiratory status: No respiratory distress Chest status: Nontender Breath sounds: Normal Chest palpation: Normal - Cardiovascular Rhythm: Regular Heart sounds: Normal auscultation Murmur: No - Abdominal Inspection: Normal Distension: No distension Bowel sounds: Normal Tenderness: Nontender Organomegaly: No organomegaly - Rectal Hemorrhoids: Other - deferred - Genitourinary Bimanuel exam: Other - deferred - Back Back: Normal - Extremities General upper extremity: Tender - right shoulder deformity General lower extremity: Normal inspection - Neurological Neuro grossly intact: Yes Cognition: Normal Orientation: AAOx4 Edward Coma Scale Eye Opening: Spontaneous Edward Coma Scale Verbal: Oriented Edward Coma Scale Motor: Obeys Commands Edward Coma Scale Total: 15 Speech: Normal Motor strength normal: LUE, LLE, RLE. No: RUE Sensory: Normal - Psychological Associated symptoms: Normal affect - Skin Skin Temperature: Warm Skin Moisture: Dry Course - Vital Signs Vital signs: Temp Pulse Resp BP Pulse Ox 98.2 F 69 20 174/75 H 100 02/24/20 13:27 02/24/20 21:31 02/24/20 21:31 02/24/20 21:31 02/24/20 21:31 - Laboratory Result Diagrams: 02/24/20 15:59 02/24/20 15:59 Laboratory results interpreted by me: 02/24/20 02/24/20 02/24/20 15:00 15:59 15:59 [place] % (Auto) 14.2 H BUN 27 H Urine Protein 100 H Urine Ketones TRACE H Urine Urobilinogen 2.0 H Urine Ascorbic Acid 20 H - Diagnostic Test Radiology reviewed: Reports reviewed - EKG Interpretation by Me EKG shows normal: Sinus rhythm Rate: Normal - 86 bpm Rhythm: NSR Harlan/QRS: RBBB - And is compared with the old EKG but this is interpreted by me. There is no T wave inversion Procedures - Joint Reduction/Fracture Care Right Shoulder Time completed: 21:25 Consent obtained: Yes Conscious sedation: Yes Pre-procedure NV exam: Yes Fracture: Closed Post-procedure NV exam: Yes Post-reduction x-ray: Joint reduced Reduction attempts: 1 Complications: Yes - pain of right shoulder Critical Care Note - Critical Care Note Comments: I advised [place] her daughter and patient of the need to see Dr. Jasbir Arnett orthopedics tomorrow in his office. We will also get a comparison left shoulder x-ray Discharge - Discharge Clinical Impression: Dislocation of right shoulder joint Qualifiers: Encounter type: initial encounter Qualified Code(s): S43.004A - Unspecified dislocation of right shoulder joint, initial encounter Condition: Good Disposition: HOME, SELF-CARE Additional Instructions: Follow-up with Dr. Arnett in his office tomorrow; try to take ibuprofen and Tylenol for pain. Return to ER if symptoms persist. Referrals: JASBIR ARNETT, [ACTIVE STAFF] - Follow up as needed
[2020-02-24] MEDS ORDERED: PROPOFOL INJ 200 MG/20 ML VIAL IV ONE (20:18)
[2020-02-24] MEDS ORDERED: KETAMINE HCL INJ 500 MG/10 ML VIAL IV ONE (20:18)
[2020-02-24] MEDS ORDERED: ONDANSETRON HCL INJ/PF 4 MG/2 ML SDV IV ONE (20:59)
[2020-02-24] MEDS ORDERED: IBUPROFEN 600 MG TABLET PO ONE (22:07)
[2020-02-24] MEDS ORDERED: ACETAMINOPHEN WITH CODEINE #3 TABLET PO ONE (22:07)
--- NOTE | 2020-02-24 22:20 | RADIOLOGY REPORT (SQ) ---
EXAM DESCRIPTION: XR SHOULDER 2 OR MORE VIEWS COMPLETED DATE/TME: 02/24/2020 21:23 CLINICAL HISTORY: 89 years, Female, POST REDUCTION COMPARISON: Right humeral films from earlier today at 2:46 PM NUMBER OF VIEWS: 2 TECHNIQUE: 2 views. AP internal rotation and scapular Y views of the right shoulder were obtained at 9:46 PM. LIMITATIONS: None. FINDINGS: Previously identified dislocation has been reduced, however there is slight inferior subluxation of the humeral head with respect to the glenoid by approximately 8 mm. Calcification adjacent to the posterior humeral head on the prior examination is largely obscured by overlapping bone. AC joint appears intact. IMPRESSION: Previously identified glenohumeral dislocation is been reduced, however there is mild residual inferior subluxation of the humeral head with respect to the glenoid by approximately 8 mm. copyright 2011 [employer]- All Rights Reserved
--- NOTE | 2020-02-24 22:22 | RADIOLOGY REPORT (SQ) ---
EXAM DESCRIPTION: XR SHOULDER 1 VIEW COMPLETED DATE/TME: 02/24/2020 21:56 CLINICAL HISTORY: 89 years, Female, compare to right COMPARISON: Examination is correlated with plain films of the contralateral shoulder. NUMBER OF VIEWS: 1 TECHNIQUE: AP internally rotated image of the left shoulder was obtained LIMITATIONS: None. FINDINGS: There is no fracture or dislocation. Glenohumeral alignment is within normal limits. There is mild AC joint spurring. AC joint is otherwise intact. Incidental aortic calcifications are noted. IMPRESSION: Mild AC joint arthrosis. No acute abnormality is seen. copyright 2010 [employer]- All Rights Reserved
[2020-02-24 22:37] VITALS: BP 146/63
== END 2020-02-24 23:05 | disposition home or self-care (01) ==
LOC: ER 13:13
PROC: 0RSJXZZ Reposition Right Shoulder Joint, External Approach (ICD-10-PCS; principal; 2020-02-24)
DX: S43.004A Unspecified dislocation of right shoulder joint, initial encounter (principal); M25.511 Pain in right shoulder; X58.XXXA Exposure to other specified factors, initial encounter; Z79.899 Other long term (current) drug therapy; Z87.891 Personal history of nicotine dependence; I10 Essential (primary) hypertension; J44.9 Chronic obstructive pulmonary disease, unspecified
CPT/HCPCS: 23650; 93005; 99285; 99152; 96374; 36415; 85025; 80053; 81001; 84484; 71045; 73060; 73020; 73030; 93010; A9270 ×3; J3490; J2405; J2704